=== PATIENT | male | born 1935 | race Asian ===

== ENCOUNTER 2017-06-15 01:14 | Emergency (ER) | payer OTHER ==
[2017-06-15 01:17] VITALS: BMI 23.1
[2017-06-15 01:38] LABS: EOS % 0.8 % (0-4.5); HEMATOCRIT 35.2 % (35.4-49); HEMOGLOBIN 11.5 GM/dL (11.7-16.9); LYMPH % 2.2 % (8-40); MCH 33.1 pg (25.7-33.7); MCHC 32.7 g/dl (32.0-35.9); MEAN CELL VOLUME 101.4 fl (80-96); MEAN PLT VOLUME 8.8 fl (7.5-11.1); PLATELET COUNT 247 K/MM3 (134-434); RBC 3.47 M/mm3 (4.00-5.60); RDW 15.8 % (11.9-15.9); WHITE BLOOD COUNT 10.8 K/mm3 (4.0-10.0)
--- NOTE | 2017-06-15 01:42 | PDOC ---
History of Present Illness - General Chief Complaint: Pain, Acute Stated Complaint: ABD PAIN Time Seen by Provider: 06/15/17 01:31 History Source: Patient, Significant Other - History of Present Illness Initial Comments: 06/15/17 02:19 82-year-old male with epigastric pain since this afternoon patient has a past medical history of liver CA currently on chemotherapy/embolization therapy at [place]. Past History - Past Medical History Allergies/Adverse Reactions: Allergies Allergy/AdvReac Type Severity Reaction Status Date / Time No Known Allergies Allergy Verified 06/15/17 01:21 Home Medications: Ambulatory Orders Aspirin 81 mg PO DAILY 06/15/17 Furosemide [Lasix] mg PO DAILY 06/15/17 Hydroxyurea [Hydrea -] 500 mg PO BID 06/15/17 Lisinopril [Prinivil] mg PO DAILY 06/15/17 Tamsulosin HCl [Flomax] 0.4 mg PO DAILY 06/15/17 Cancer: Yes (liver) COPD: No HTN: Yes Other medical history: enlarged prostate - Surgical History Abdominal Surgery: Yes (s/p perf during colonoscopy) - Suicide/Smoking/Psychosocial Hx Smoking History: Never smoked Have you smoked in the past 12 months: No Information on smoking cessation initiated: No Hx Alcohol Use: No Drug/Substance Use Hx: No Review of Systems - Review of Systems Able to Perform ROS?: Yes Is the patient limited Greenlandic proficient: No Constitutional: No: Symptoms Reported, See HPI, Chills, Diaphoresis, Fever, Loss of Appetite, Malaise, Night Sweats, Weakness, Weight Stable, Unintentional Wgt. Loss, Unexplained wgt Loss, Other HEENTM: No: Symptoms Reported, See HPI, Eye Pain, Blurred Vision, Tearing, Recent change in vision, Double Vision, Cataracts, Ear Pain, Ocular Prothesis, Ear Discharge, Nose Pain, Nose Congestion, Tinnitus, Nose Bleeding, Hearing Loss , Throat Pain, Throat Swelling, Mouth Pain, Dental Problems, Difficulty Swallowing, Mouth Swelling, Other Respiratory: No: Symptoms reported, See HPI, Cough, Orthopnea, Shortness of Breath, SOB with Exertion, SOB at Rest, Stridor, Wheezing, Productive cough, Hemoptysis, Other Cardiac (ROS): No: Symptoms Reported, See HPI, Chest Pain, Edema, Irregular Heart Rate, Lightheadedness, Palpitations, Syncope, Chest Tightness, Other ABD/GI: Yes: Abdominal cramping (epigastric pain). No: Symptoms Reported, See HPI, Abdominal Distended, Abd. Pain w/ defecation, Blood Streaked Bowels, Constipated, Diarrhea, Difficulty Swallowing, Nausea, Poor Appetite, Poor Fluid Intake, Rectal Bleeding, Vomiting, Indigestion, Tarry Stools, Other *Physical Exam - Vital Signs Last Vital Signs Temp Pulse Resp BP Pulse Ox 98.2 F 65 20 156/65 100 06/15/17 01:16 06/15/17 01:16 06/15/17 01:16 06/15/17 01:16 06/15/17 01:16 - Physical Exam General Appearance: Yes: Appropriately Dressed HEENT: negative: EOMI, [place], Normal ENT Inspection, Normal Voice, Symmetrical, TMs Normal, Pharynx Normal, Pale Conjunctivae, Photophobia, Scleral Icterus (R) , Scleral Icterus (L), Muffled/Hoarse voice, Pharyngeal Erythema, Tonsillar Exudate, Tonsillar Erythema, Nasal Congestion, Rhinorrhea, Sinus Tenderness, Orbits, Hearing Decreased, Hearing Grossly Normal, TM Bulging, TM Dull, TM Erythema, Lesions, Sellers, Excessive drooling, Thrush, Other Neck: negative: Tender, Trachea midline, Normal Thyroid, Rigid, Supple, Carotid bruit, Decreased range of motion, Stridor, Lymphadenopathy (R), Lymphadenopathy (L), Rigidity, Tender lateral, Tender midline, Thyromegaly, Other Respiratory/Chest: positive: Lungs Clear, Normal Breath Sounds Cardiovascular: positive: Regular Rhythm, Regular Rate Gastrointestinal/Abdominal: positive: Normal Bowel Sounds, Tender (epigastric pain), Distended, Hepatomegaly Extremity: positive: Normal Capillary Refill, Normal Inspection, Normal Range of Motion Integumentary: positive: Normal Color, Dry, Warm, Jaundice, Other (iceteric sclera) Neurologic: positive: Fully Oriented, Alert, Normal Mood/Affect ED Treatment Course - LABORATORY CBC & Chemistry Diagram: 06/15/17 01:30 06/15/17 01:30 Progress Note - Progress Note Progress Note: A; cholecystitis, Pancreatitis Liver CA Medical Decision Making - Medical Decision Making 06/15/17 03:44 Dr. Hirsch aware of this patient. recommends contacting Dr. GANNON's office in [place]. Patient to be evaluated by surgery here. 06/15/17 03:[address] Gannon at [facility]/ [place] . Dr. Mattson pending call back. 06/15/17 06:30 Multiple attempts to paging service for Dr. Gannon with no call back. pending evaluation By Dr. Hirsch 06/15/17 06:43 06/15/17 07:15 Patient signed out to Chantal MARTINEZ. 06/15/17 19:34 patient is being transferred to [place] for admission *DC/Admit/Observation/Transfer Diagnosis at time of Disposition: Epigastric abdominal pain Pancreatitis Qualifiers: Chronicity: acute Pancreatitis type: biliary Acute pancreatitis complication: unspecified Qualified Code(s): K85.10 - Biliary acute pancreatitis without necrosis or infection Cholecystitis with cholelithiasis Qualifiers: Cholelithiasis location: gallbladder Cholecystitis acuity: acute Biliary obstruction: without biliary obstruction Qualified Code(s): K80.00 - Calculus of gallbladder with acute cholecystitis without obstruction - Discharge Dispostion Disposition: TRANSFER ACUTE CARE/OTHER HOSP Condition at time of disposition: Fair - Referrals Referrals: ON STAFF,NOT [Primary Care Provider] - - Patient Instructions - Post Discharge Activity
[2017-06-15 01:51] LABS: INR 1.17 (0.82-1.09); PROTHROMBIN TIME (PATIENT) 13.2 SEC (9.98-11.88)
[2017-06-15 02:05] LABS: ALBUMIN 3.7 g/dl (3.4-5.0); ANION GAP 11 (8-16); BILIRUBIN,TOTAL 3.6 mg/dL (0.2-1.0); BLOOD UREA NITROGEN 25 mg/dL (7-18); CALCIUM 8.1 mg/dL (8.5-10.1); CHLORIDE 106 mmol/L (98-107); CO2 22 mmol/L (21-32); CREATININE 1.6 mg/dL (0.7-1.3); GLUCOSE,RANDOM 123 mg/dL (74-106); SGOT/AST 194 U/L (15-37); SGPT/ALT 217 U/L (12-78); SODIUM 139 mmol/L (136-145); TOT PROT 6.8 g/dl (6.4-8.2)
[2017-06-15 02:06] LABS: ALK PHOS 277 U/L (45-117)
[2017-06-15] MEDS ORDERED: morphine CARPU-JECT 4 MG/1 ML DISP.SYRIN IVPUSH ONE (02:26)
[2017-06-15] MEDS ORDERED: ONDANSETRON 4 MG/2 ML VIAL ONE (02:28)
[2017-06-15] MEDS ORDERED: ONDANSETRON 4 MG/2 ML VIAL IVPUSH ONE (02:28)
[2017-06-15] MEDS ORDERED: MORPHINE SULFATE 10 MG/1 ML *VIAL ONE (02:28)
[2017-06-15] MEDS ORDERED: SODIUM CHLORIDE 1,000 ML IV SCH (03:45)
[2017-06-15] MEDS ORDERED: PIPERACILLIN/TAZOB 3.375 GM/50 ML PRE-DOCKED IVPB ONE (03:45)
[2017-06-15] MEDS ORDERED: PIPERACILLIN/TAZOB 3.375 GM 3.375 GM/50 ML BAG IVPB ONE (03:59)
[2017-06-15] MEDS ORDERED: SODIUM CHLORIDE 1,000 ML IV STA (06:59)
[2017-06-15 07:23] LABS: URINE APPEARANCE CLEAR; URINE BILIRUBIN NEGATIVE (NEGATIVE); URINE BLOOD NEGATIVE (NEGATIVE); URINE COLOR AMBER; URINE GLUCOSE (UA) NEGATIVE (NEGATIVE); URINE KETONE NEGATIVE (NEGATIVE); URINE LEUK ESTERASE NEGATIVE (NEGATIVE); URINE NITRITE NEGATIVE (NEGATIVE); URINE PROTEIN NEGATIVE (NEGATIVE)
--- NOTE | 2017-06-15 07:49 | PDOC ---
*Physical Exam - Vital Signs Last Vital Signs Temp Pulse Resp BP Pulse Ox 99.4 F 62 14 122/47 96 06/15/17 07:06 06/15/17 07:06 06/15/17 06:35 06/15/17 07:06 06/15/17 07:06 - Physical Exam General Appearance: Yes: Appropriately Dressed. No: Apparent Distress HEENT: positive: Normal Voice Neck: positive: Supple Respiratory/Chest: positive: Lungs Clear, Normal Breath Sounds. negative: Respiratory Distress Cardiovascular: positive: Regular Rate, S1, S2 Gastrointestinal/Abdominal: positive: Normal Bowel Sounds, Tender, Soft. negative: Distended Integumentary: positive: Dry, Warm Neurologic: positive: Fully Oriented, Alert, Normal Mood/Affect ED Treatment Course - LABORATORY CBC & Chemistry Diagram: 06/15/17 01:30 06/15/17 01:30 - ADDITIONAL ORDERS Additional order review: Laboratory Results 06/15/17 06/15/17 06/15/17 05:30 01:30 01:30 PT with INR INR Sodium Potassium Chloride Carbon Dioxide Anion Gap BUN Creatinine Creat Clearance w eGFR Random Glucose Lactic Acid Calcium Total Bilirubin AST ALT Alkaline Phosphatase Ammonia Creatine Kinase 103 Troponin I 0.06 H Total Protein Albumin Lipase 644 H Urine Color Alisha Urine Appearance Clear Urine pH 5.0 Ur Specific [place] 1.018 Urine Protein Negative Urine Glucose (UA) Negative Urine Ketones Negative Urine Blood Negative Urine Nitrite Negative Urine Bilirubin Negative Urine Urobilinogen 2.0 Ur Leukocyte Esterase Negative 06/15/17 06/15/17 06/15/17 01:30 01:30 01:30 PT with INR INR Sodium 139 Potassium 4.0 Chloride 106 Carbon Dioxide 22 Anion Gap 11 BUN 25 H Creatinine 1.6 H Creat Clearance w eGFR 41.39 Random Glucose 123 H Lactic Acid 0.8 Calcium 8.1 L Total Bilirubin 3.6 H AST 194 H ALT 217 H Alkaline Phosphatase 277 H Ammonia 30.49 Creatine Kinase Troponin I Total Protein 6.8 Albumin 3.7 Lipase Urine Color Urine Appearance Urine pH Ur Specific [place] Urine Protein Urine Glucose (UA) Urine Ketones Urine Blood Urine Nitrite Urine Bilirubin Urine Urobilinogen Ur Leukocyte Esterase 06/15/17 01:30 PT with INR 13.20 H INR 1.17 H Sodium Potassium Chloride Carbon Dioxide Anion Gap BUN Creatinine Creat Clearance w eGFR Random Glucose Lactic Acid Calcium Total Bilirubin AST ALT Alkaline Phosphatase Ammonia Creatine Kinase Troponin I Total Protein Albumin Lipase Urine Color Urine Appearance Urine pH Ur Specific [place] Urine Protein Urine Glucose (UA) Urine Ketones Urine Blood Urine Nitrite Urine Bilirubin Urine Urobilinogen Ur Leukocyte Esterase 06/15/17 01:30 RBC 3.47 L MCV 101.4 H MCHC 32.7 RDW 15.8 MPV 8.8 Neutrophils % 91.0 H Lymphocytes % 2.2 L Monocytes % 6.0 Eosinophils % 0.8 Basophils % 0.0 - Medications Given in the ED: ED Medications Discontinued Medications Generic Name Dose Route Start Last Admin Trade Name Freq PRN Reason Stop Dose Admin Morphine Sulfate 4 mg 06/15/17 02:26 06/15/17 02:35 Morphine Injection - IVPUSH 06/15/17 02:27 4 mg ONCE ONE Administration Ondansetron HCl 4 mg 06/15/17 02:28 06/15/17 02:28 Zofran Injection IVPUSH 06/15/17 02:29 4 mg NOW ONE Administration Piperacillin Sod/Tazobactam Sod 3.375 gm 06/15/17 03:45 06/15/17 04:06 Zosyn 3.375gm Ivpb (Pre-Docked) IVPB 06/15/17 03:46 3.375 gm ONCE ONE Administration Protocol Medical Decision Making - Medical Decision Making 06/15/17 07:47 Signed out to me at 7 AM by DMITRIY Wheeler. Patient is a 82-year-old male with history of liver CA on chemotherapy/ embolization therapy, follows up with oncology at [place], here with epigastric pain. LFTs including bili elevated, lipase also elevated. No significant leukocytosis. As per DMITRIY Wheeler, patient had gallstones/sludge and wall thickness on US. Dr. Hirsch of surgery has since been consulted and recommends IV fluids and Zosyn. AnastacioDTati now at bedside. Plan is to transfer patient to [place] where he gets his care, Zaida to facilitate transfer 06/15/17 11:28 Dr Hirsch facilitated transfer to [facility]. Transfer center contacted me to let me know that Dr. Solano, a hospitalist at [place] is accepting patient and will consult surg onc once patient arrives to facility. Will sent ALS transport. Will call back for nurse to nurse report. Transfer form filled out and face sheet sent by Dr Hirsch. *DC/Admit/Observation/Transfer Diagnosis at time of Disposition: Epigastric abdominal pain Pancreatitis Qualifiers: Chronicity: acute Pancreatitis type: biliary Acute pancreatitis complication: unspecified Qualified Code(s): K85.10 - Biliary acute pancreatitis without necrosis or infection Cholecystitis with cholelithiasis Qualifiers: Cholelithiasis location: gallbladder Cholecystitis acuity: acute Biliary obstruction: without biliary obstruction Qualified Code(s): K80.00 - Calculus of gallbladder with acute cholecystitis without obstruction - Discharge Dispostion Disposition: TRANSFER ACUTE CARE/OTHER HOSP Condition at time of disposition: Fair - Referrals Referrals: ON STAFF,NOT [Primary Care Provider] - - Patient Instructions - Post Discharge Activity
--- NOTE | 2017-06-15 09:24 | CONSULT ---
Consult Consult Specialty:: General Surgery Referred by:: Abby Wheeler Reason for Consultation:: gallstones, pancreatitis, cholecystitis? - History of Present Illness Chief Complaint: epigastric pain History of Present Illness: 82yo M with HTN, BPH, CAD, h/o PR "a slight one" in 2001, liver CA diagnosed 2013 s/p chemoembolization x3 last 03/04, had MRI at [place] last week (all Tx has been at [place]), but cannot remember name of his liver surgeon. Oncologist was Dr. Allie Gannon, who is now at [facility]. Tuesday, he was in his usual state of health, then Tuesday he began having epigastric pain. It got worse over the last few days, and very bad after spicy noodles yesterday. He had no N/V, F/ C, or diarrhea. He has occasional constipation but had a soft, formed BM yesterday. Last po was an Ensure about 9pm last night. The pain is a better after morphine in the ER. Here, had a wbc 10.8, BUN/Cr 25/1.6, UA negative, LFTs elevated with bili 3.6 and lipase 664. US shows partially distended gallbladder (7.7cm) with thickened wall, stones and sludge, no pericholecystic fluid and no Urias's sign. CBD was 1cm on US with no intrahepatic biliary dilation. Few hyperechoic liver lesions present consistent with known neoplasm. Surgery is consulted because of findings consistent with possible gallstone pancreatitis and possible cholecystitis. ER overnight was unable to reach Dr. Gannon or his on-call covering doctor. Pt's states he is no longer seeing Dr. Gannon. - History Source History Provided By: Patient, Family Member () Limitations to Obtaining History: No Limitations - Past Medical History Cardio/Vascular: Yes: CAD, HTN, PR ("slight one" 2001) Gastrointestinal: Yes: Ascites, Cancer (liver CA dx 2012) Renal/: Yes: BPH - Past Surgical History Past Surgical History: Yes: Cataract Removal (bilateral), Colonoscopy Additional Surgical History: laparotomy for perforation during colonoscopy - has midline scar with retention suture scars from 2013 - Alcohol/Substance Use Hx Alcohol Use: No History of Substance Use: reports: None - Smoking History Smoking history: Never smoked Have you smoked in the past 12 months: No - Social History Usual Living Arrangement: With Spouse ADL: Independent Home Medications - Allergies Allergies/Adverse Reactions: Allergies Allergy/AdvReac Type Severity Reaction Status Date / Time No Known Allergies Allergy Verified 06/15/17 01:21 - Home Medications Home Medications: Ambulatory Orders Aspirin 81 mg PO DAILY 06/15/17 Furosemide [Lasix] mg PO DAILY 06/15/17 Hydroxyurea [Hydrea -] 500 mg PO BID 06/15/17 Lisinopril [Prinivil] mg PO DAILY 06/15/17 Tamsulosin HCl [Flomax] 0.4 mg PO DAILY 06/15/17 Home Medications (free text): took home meds yesterday Family Disease History - Family Disease History Family History: Denies (parents of "old age," siblings and children healthy per pt) Review of Systems - Review of Systems Constitutional: denies: Chills, Fever Eyes: reports: Other (wears glasses). denies: Recent Change in Vision HENT: reports: Hearing Loss (left ear hears better than right). denies: Difficult Swallowing, Throat Pain Neck: denies: Swollen Glands, Tenderness Cardiovascular: denies: Chest Pain, Palpitations Respiratory: reports: Orthopnea (uses two pillows at night), SOB (sometimes). denies: Cough Gastrointestinal: reports: Abdominal Pain (with hpi), Constipation (sometimes). denies: Diarrhea, Nausea, Vomiting Genitourinary: denies: Burning, Dysuria Musculoskeletal: denies: Back Pain, Joint Pain Integumentary: denies: Change in Color, Rash Neurological: denies: Dizziness, Headache Psychiatric: denies: Anxiety, Depression Physical Exam Vital Signs: Vital Signs Temperature 99.4 F 06/15/17 07:06 Pulse Rate 62 06/15/17 07:06 Respiratory Rate 14 06/15/17 06:35 Blood Pressure 122/47 06/15/17 07:06 O2 Sat by Pulse Oximetry (%) 96 06/15/17 07:06 Constitutional: Yes: Well Nourished, No Distress, Calm Eyes: Yes: Conjunctiva Clear, EOM Intact. No: Sclera Icterus (minimal if any) HENT: Yes: Atraumatic, Normocephalic Neck: Yes: Supple, Trachea Midline Cardiovascular: Yes: Regular Rate and Rhythm, Murmur Respiratory: Yes: Regular, CTA Bilaterally Gastrointestinal: Yes: Normal Bowel Sounds, Soft, Ascites, Distention, Hernia ( umbilical, reducible), Tenderness, Epigastrium (mild), Other (well-healed midline scar with retention suture scars). No: Tenderness, Rebound ...Rectal Exam: Yes: Deferred Renal/: No: CVA Tenderness - Left, CVA Tenderness - Right Musculoskeletal: No: Back Pain, Joint Stiffness Extremities: No: Cool, Cyanosis Edema: No Peripheral Pulses WNL: Yes Integumentary: No: Jaundice, Rash Neurological: Yes: Alert, Oriented Psychiatric: Yes: Alert, Oriented Labs: CBC, BMP 06/15/17 01:30 06/15/17 01:30 CMP Sodium 139 mmol/L (136-145) 06/15/17 01:30 Potassium 4.0 mmol/L (3.5-5.1) 06/15/17 01:30 Chloride 106 mmol/L (98-107) 06/15/17 01:30 Carbon Dioxide 22 mmol/L (21-32) 06/15/17 01:30 Anion Gap 11 (8-16) 06/15/17 01:30 BUN 25 mg/dL (7-18) H 06/15/17 01:30 Creatinine 1.6 mg/dL (0.7-1.3) H 06/15/17 01:30 Creat Clearance w eGFR 41.39 (>60) 06/15/17 01:30 Random Glucose 123 mg/dL (74-106) H 06/15/17 01:30 Lactic Acid 0.8 mmol/L (0.0-2.0) 06/15/17 01:30 Calcium 8.1 mg/dL (8.5-10.1) L 06/15/17 01:30 Total Bilirubin 3.6 mg/dL (0.2-1.0) H 06/15/17 01:30 AST 194 U/L (15-37) H 06/15/17 01:30 ALT 217 U/L (12-78) H 06/15/17 01:30 Alkaline Phosphatase 277 U/L (45-117) H 06/15/17 01:30 Ammonia 30.49 umol/L (11-32) 06/15/17 01:30 Creatine Kinase 103 IU/L (39-308) 06/15/17 01:30 Troponin I 0.06 ng/ml (0.00-0.05) H 06/15/17 01:30 Total Protein 6.8 g/dl (6.4-8.2) 06/15/17 01:30 Albumin 3.7 g/dl (3.4-5.0) 06/15/17 01:30 Lipase 644 U/L (73-393) H 06/15/17 01:30 INR, PTT INR 1.17 (0.82-1.09) H 06/15/17 01:30 Urine Test Results Urine Color Alisha 06/15/17 05:30 Urine Appearance Clear 06/15/17 05:30 Urine pH 5.0 (5.0-8.0) 06/15/17 05:30 Ur Specific [place] 1.018 (1.001-1.035) 06/15/17 05:30 Urine Protein Negative (NEGATIVE) 06/15/17 05:30 Urine Glucose (UA) Negative (NEGATIVE) 06/15/17 05:30 Urine Ketones Negative (NEGATIVE) 06/15/17 05:30 Urine Blood Negative (NEGATIVE) 06/15/17 05:30 Urine Nitrite Negative (NEGATIVE) 06/15/17 05:30 Urine Bilirubin Negative (NEGATIVE) 06/15/17 05:30 Ur Leukocyte Esterase Negative (NEGATIVE) 06/15/17 05:30 Imaging - Results Ultrasound: Report Reviewed (also with liver lesions present), Image Reviewed ( images seen - stones and sludge present, gallbladder partially distended to 7.7cm, wall thickened, cbd 1cm) Problem List - Problems (1) Biliary acute pancreatitis without necrosis or infection Assessment/Plan: Patient may have gallstone pancreatitis, but without prior labs for comparison, it is difficult to be certain given his underlying liver cancer. If he does have gallstone pancreatitis, or needs surgical intervention for his gallbladder, he should be transferred to [place], where his hepatobiliary specialist and oncologist are located. His liver cancer and ascites pose additional surgical risks, which would be best handled at a tertiary center with his own doctors ([place]). Multiple calls placed to [facility] trying to reach the Cancer Center and find the name of Mr. Vásquez' surgeon. Ultimately, spoke with Sana at [facility] Transfer [facility], who is reaching out to oncology personal banker. His thinks the surgeon might be Dr. Nicolas. ER started IV fluid resuscitation and maintenance, and he is NPO. Zosyn 3.375g was given ~4am to cover for possible cholecystitis as well. WBC elevation could be secondary to cancer, dehydration or inflammation as well as infection. Pain control prn Awaiting callback from transfer center to speak with medical or surgical provider at [place] to facilitate transfer. Time spent on exam, discussion with patient/ and other institutions is 70 minutes. 10:34am: Spoke again with Sana in transfer center, and JUAN Siddiqi at [place], who confirms that patient's LFTs were normal in early May, as well as wbc. He had MRI just Tuesday after telling them that he had pain, which also shows stones and sludge, normal pancreas and two new liver lesions. Dr. Nicolas is the interventional radiologist who did the embolizations. She will speak with her attending. Dr. Raman Solano, hospitalist, has also been contacted. I spoke with him through the transfer center, and he agrees the patient should be transferred to [place]. At this time, transfer is pending determination of accepting service, medicine or surgery. Dr. Santillan from the ER is aware and will continue to facilitate the process with JUAN Ortiz (ER). Code(s): K85.10 - BILIARY ACUTE PANCREATITIS WITHOUT NECROSIS OR INFECTION (2) Liver cancer Code(s): C22.9 - MALIG NEOPLASM OF LIVER, NOT SPECIFIED PRIMARY OR SEC Qualifiers: Liver malignancy type: hepatocellular carcinoma Qualified Code(s): C22.0 - Liver cell carcinoma (3) Epigastric abdominal pain Code(s): R10.13 - EPIGASTRIC PAIN (4) Dehydration Code(s): E86.0 - DEHYDRATION (5) Hypertension Code(s): I10 - ESSENTIAL (PRIMARY) HYPERTENSION Qualifiers: Hypertension type: essential hypertension Qualified Code(s): I10 - Essential (primary) hypertension (6) BPH (benign prostatic hyperplasia) Code(s): N40.0 - BENIGN PROSTATIC HYPERPLASIA WITHOUT LOWER URINRY TRACT SYMP Qualifiers: Lower urinary tract symptom presence: unspecified whether lower urinary tract symptoms present Qualified Code(s): N40.0 - Benign prostatic hyperplasia without lower urinary tract symptoms
[2017-06-15 09:59] VITALS: TEMP 98.7
--- NOTE | 2017-06-15 10:34 | EKG ---
Test Reason : Blood Pressure : / mmHG Vent. Rate : 056 BPM Atrial Rate : 056 BPM P-R Int : 266 ms QRS Dur : 094 ms QT Int : 474 ms P-R-T Axes : 016 -31 094 degrees QTc Int : 457 ms SINUS BRADYCARDIA WITH 1ST DEGREE A-V BLOCK LEFT AXIS DEVIATION LEFT VENTRICULAR HYPERTROPHY WITH REPOLARIZATION ABNORMALITY SEPTAL INFARCT , AGE UNDETERMINED ABNORMAL ECG NO PREVIOUS ECGS AVAILABLE Confirmed by MIKE GARIBAY, ASHLEY ([id number]) on 06/15/2017 10:33:49 AM Referred By: Confirmed By:ASHLEY MCKEON MD
[2017-06-15] MEDS ORDERED: LORazepam 1 MG TABLET PO ONE (17:32)
[2017-06-15] MEDS ORDERED: LORazepam 0.5 MG TABLET ONE (17:42)
[2017-06-15 19:52] VITALS: BP 128/62; PULSE 80
== END 2017-06-15 19:50 | disposition short-term general hospital (02) ==
LOC: JER 01:14
PROC: 3E033GC Introduction of Other Therapeutic Substance into Peripheral Vein, Percutaneous Approach (ICD-10-PCS; principal; 2017-06-15)
PROC: 3E03329 Introduction of Other Anti-infective into Peripheral Vein, Percutaneous Approach (ICD-10-PCS; 2017-06-15)
PROC: 3E033NZ Introduction of Analgesics, Hypnotics, Sedatives into Peripheral Vein, Percutaneous Approach (ICD-10-PCS; 2017-06-15)
PROC: 3E0337Z Introduction of Electrolytic and Water Balance Substance into Peripheral Vein, Percutaneous Approach (ICD-10-PCS; 2017-06-15)
DX: R10.13 Epigastric pain (principal); K85.10 Biliary acute pancreatitis without necrosis or infection; K80.00 Calculus of gallbladder with acute cholecystitis without obstruction; Z85.05 Personal history of malignant neoplasm of liver; I10 Essential (primary) hypertension
CPT/HCPCS: 36415; 76705-TC; 80053; 81003; 82140; 82550; 83605; 83690; 84484; 85025; 85610; 93005; 93010; 96361; 96365; 96375; 99285-25

== ENCOUNTER 2018-02-14 19:44 | Inpatient (IN) | payer OTHER ==
[2018-02-14 19:59] VITALS: BMI 22.3
--- NOTE | 2018-02-14 19:59 | PDOC ---
Rapid Medical Evaluation Time Seen by Provider: 02/14/18 19:56 Medical Evaluation: Allergies Allergy/AdvReac Type Severity Reaction Status Date / Time No Known Allergies Allergy Verified 11/28/17 08:33 02/14/18 19:56 Pt presents to the ED for a low blood count as told by his doctor. Told he has a low hemoglobin. Pt admits to SOB and weakness Exam: Pale appearing. NAD Orders: Labs, IV, EKG Pt to proceed to ED for further evaluation
--- NOTE | 2018-02-14 20:46 | PDOC ---
History of Present Illness - General Chief Complaint: Revisit, Lab Variance Stated Complaint: LOW HEMOGLOBIN, PCP SENT Time Seen by Provider: 02/14/18 19:56 History Source: Patient - History of Present Illness Initial Comments: 02/14/18 20:51 The patient is an 82 year old male accompanied with his , with a past medical history of liver cancer (last chemo embolization treatment 12/2017), HTN , HLD, BPH, and hernia sent by [place] oncologist for low hemoglobin. as per patient has been feeling weak, nausea and headache for 1 day. denies chest pain, recent falls, abdominal pain, nausea, vomiting, bleeding, retacl bleeding 02/14/18 20:55 02/14/18 22:58 Past History - Past Medical History Allergies/Adverse Reactions: Allergies Allergy/AdvReac Type Severity Reaction Status Date / Time No Known Allergies Allergy Verified 02/14/18 19:57 Home Medications: Ambulatory Orders Furosemide [Lasix] 20 mg PO DAILY 06/15/17 Tamsulosin HCl [Flomax -] 0.4 mg PO DAILY 06/15/17 Entecavir 0.5 mg PO DAILY 11/28/17 Simvastatin 20 mg PO DAILY 11/28/17 Pantoprazole Sodium [Protonix -] 40 mg PO DAILY 30 Days #30 tablet.ec MDD 1 07/03 levoFLOXacin [Levaquin -] 500 mg PO DAILY 3 Days #3 tablet 02/18/18 Anemia: Yes Cancer: Yes (liver) Cardiac Disorders: Yes (SOB) CVA: Yes (2007) COPD: No GI Disorders: Yes (Reflux) HTN: Yes Hypercholesterolemia: Yes Liver Disease: Yes - Surgical History Abdominal Surgery: Yes (s/p perf during colonoscopy) - Immunization History Immunization Up to Date: Yes - Suicide/Smoking/Psychosocial Hx Smoking History: Former smoker Have you smoked in the past 12 months: No If you are a former smoker, when did you quit?: many years ago Information on smoking cessation initiated: No Hx Alcohol Use: No Drug/Substance Use Hx: No Substance Use Type: None Hx Substance Use Treatment: No *Physical Exam - Vital Signs Last Vital Signs Temp Pulse Resp BP Pulse Ox 98.6 F 71 18 137/39 L 98 02/14/18 19:57 02/14/18 19:57 02/14/18 19:57 02/14/18 19:57 02/14/18 19:57 - Physical Exam General Appearance: Yes: Appropriately Dressed Respiratory/Chest: positive: Lungs Clear, Normal Breath Sounds Cardiovascular: positive: Regular Rhythm, Regular Rate Gastrointestinal/Abdominal: positive: Normal Bowel Sounds, Soft, Other (+ reducible umbilical hernia). negative: Tender Extremity: positive: Normal Capillary Refill, Normal Inspection, Normal Range of Motion Integumentary: positive: Normal Color, Dry, Warm Neurologic: positive: Fully Oriented, Normal Mood/Affect ED Treatment Course - LABORATORY CBC & Chemistry Diagram: 02/18/18 10:15 02/18/18 10:15 Medical Decision Making - Medical Decision Making A: Liver Ca with symptomatic anemia P: labs IVF PRBC ct head patient signed out to Dr. Saini *DC/Admit/Observation/Transfer Diagnosis at time of Disposition: Symptomatic anemia Liver cancer Qualifiers: Liver malignancy type: unspecified liver malignancy Qualified Code(s): C22.9 - Malignant neoplasm of liver, not specified as primary or secondary - Discharge Dispostion Disposition: HOME Condition at time of disposition: Improved Decision to Admit order: Yes - Prescriptions - Referrals - Patient Instructions - Post Discharge Activity
[2018-02-14] MEDS ORDERED: SODIUM CHLORIDE 250 ML IV STA (21:20)
[2018-02-14 21:38] LABS: BASO % 1.3 % (0-2.0); EOS % 1.7 % (0-4.5); HEMATOCRIT 21.7 % (35.4-49); LYMPH % 4.2 % (8-40); MCHC 28.2 g/dl (32.0-35.9); MEAN CELL VOLUME 70.7 fl (80-96); MEAN PLT VOLUME 8.5 fl (7.5-11.1); MONO % 7.1 % (3.8-10.2); NEUT % 85.7 % (42.8-82.8); PLATELET COUNT 416 K/MM3 (134-434); RBC 3.06 M/mm3 (4.00-5.60); RDW 21.5 % (11.9-15.9); WHITE BLOOD COUNT 9.7 K/mm3 (4.0-10.0)
[2018-02-14 21:41] LABS: HEMOGLOBIN 6.1 GM/dL (11.7-16.9)
[2018-02-14 21:56] LABS: URINE APPEARANCE CLEAR; URINE BILIRUBIN NEGATIVE (<2.0 mg/dL); URINE COLOR LTYELLOW; URINE GLUCOSE (UA) NEGATIVE (NEGATIVE); URINE KETONE NEGATIVE (NEGATIVE); URINE LEUK ESTERASE NEGATIVE (NEGATIVE); URINE NITRITE NEGATIVE (NEGATIVE); URINE PROTEIN NEGATIVE (NEGATIVE); URINE UROBILINOGEN NEGATIVE mg/dL (0.2-1.0)
[2018-02-14 22:19] LABS: ALBUMIN 3.7 g/dl (3.4-5.0); ALK PHOS 211 U/L (45-117); ANION GAP 10 MMOL/L (8-16); BILIRUBIN,TOTAL 0.8 mg/dL (0.2-1); BLOOD UREA NITROGEN 27 mg/dL (7-18); CALCIUM 8.2 mg/dL (8.5-10.1); CHLORIDE 108 mmol/L (98-107); CO2 23 mmol/L (21-32); CREATININE 1.5 mg/dL (0.55-1.3); GLUCOSE,RANDOM 100 mg/dL (74-106); SGOT/AST 39 U/L (15-37); SGPT/ALT 30 U/L (13-61); SODIUM 140 mmol/L (136-145); TOT PROT 7.8 g/dl (6.4-8.2)
[2018-02-14 22:22] LABS: INR 1.18 (0.83-1.09)
[2018-02-14 22:37] LABS: ANISOCYTOSIS 2+; OVALOCYTE FEW
--- NOTE | 2018-02-15 03:21 | PN ---
Teaching Attending Note Name of Resident: Ashleigh Reeves ATTENDING PHYSICIAN STATEMENT I saw and evaluated the patient. I reviewed the resident's note and discussed the case with the resident. I agree with the resident's findings and plan as documented. SUBJECTIVE: Patient is an 82 y/o HM with a PMH significant for Liver CA (diagnosed 2012, on chemoembolization tx at [facility] where he follows for all his needs), chronic anemia requiring transfusions at our facility in the past for symptomatic anemia (last in November, no prior FOBTs or Iron Studies at our facility), CKD- III (baseline 1.4-1.6 here), BPH, Gallstones, Cirrhosis with ascites. He presents to the ER with his after being directed to as his outpatinet oncology labs revealed an anemia that was in the 5 range when they checked and a 6.1 Hb at our facility. All of his prior records are in the process of being obtained. He had nonspecific sx including headache and weakness which he agrees are the same ones he had upon presenting last time. ER did a CT of his head which was negative. Anemia workup to be done, 2 units to be given (h/o CAD so xf goal 8), and will admit to medicine for transfusion and workup of his anemia. 10 sys ROS done and negative aside from HPI PMH and PSH are per chart; further details regarding procedural history, etc. are in the process of being obtained from [facility] asked and noncontributory Social lives with , denies drug or tobacco abuse. Occasionally drinks. OBJECTIVE: VSS, labs and imaging reviewed NAD AAOx3 resting in bed Gait wnl, speech fluid, no CN deficits, sensorium intact Judgement and insight average, denies SI, affect normal, appropriate behavior, normal mood RRR s1/2 no mgr Lungs CTAB with sym exp NT, mildly distended but this is chronic, likely ascites, +BS, reducible ventral hernia Trachea midline, no JVD Hb 6.1 on CBC; Cr at baseline; Alk Phos elevated to where it was earlier this year ASSESSMENT AND PLAN: Mr. Vásquez is an 82 y/o HM presenting with Anemia being found on outpatient labs ; he feels the same way he did in the past when he required transfusion. Hb 5- range as OP but 6.1 here. His goal is 8 given his CAD. We will transfuse him and monitor him on the medicine service. 1) Symptomatic Microcytic Anemia -Hb 6.1; no prior iron studies. Has multiple reasons to have anemia including myelosuppression, liver CA, etc. No iron studies, etc. on file here. Will obtain records from [facility] to elucidate his baseline Hb, etc. -Transfuse to goal of 8; monitor for fluid overload -Check iron studies, fobt, b12/folate, reticulocytes. If +FOBT would be prudent to consult GI and hold ASA. Need to compare heme abnormalities to his baseline -Should note he was macrocytic this winter, fell to normocytic, and is now microcytic 2) Liver Cancer -Gets chemoembolization at [facility]; obtain all old records -Contributing to anemia likely 3) Elevated Alk Phos -Chronically elevated; has been in 200s before but that was in May when he was transferred to [facility] and was accompanied by jump in AST/ALT which were starkly elevated at that time. He is not having any new tenderness, etc. -Trend, obtain old records. If this represents something significant off his baseline compared to review would consult GI. Had MRCP done in May at their facility per old surgical consultation. 4) Cirrhosis with Ascites (MELD=11) -Known diagnosis; obtain prior workup and information -Monitor fluid status, labs. No new meds as of now 5) Elevated troponin in patient with history of CAD -Patient has a history of CAD with remote IN documented; no recent events to our knowledge or in his chart here. Obtaining old records. Trend troponin, monitor on telemetry. He had nonspecific symptoms. Consulting cardiology and obtaining old records. No recent echos, stress tests, cath reports here but will check with [facility]. -Could be demand from #1 combined with renal retention due to underlying CKD, etc. Monitor for CP. 6) CKD-III -Around his baseline here, but we will cross check with old records. -Monitor BMP, Urine output 7) H/O Gallstones -Known history; no GB pain today. We will plan to monitor for now. 8) BPH -No acute issues; OP followup 9) Ventral Hernia -Likely postop; non-incarcerated and easily reduces Full Code
--- NOTE | 2018-02-15 03:26 | HP ---
CHIEF COMPLAINT: weakness Oncologist: Dr. Giles Ochoa, [facility] HISTORY OF PRESENT ILLNESS: Patient is an 82 year old male with history of liver cancer (unknown type, or stage- attempting to obtain records from [facility]) on chemo-embolization (fourth- fifth round as per patient's ), presents after being informed by his oncologist that his hemoglobin is low (reported 5.5), to come to nearest ED. Patient endorses feeling weakness for past day, with associated headache, and nausea. Denies any recent bleeding. He was seen in 11/2017 for similar symptoms and had Hb 6.7 at that time requiring PRBC transfusion. States that his symptoms of weakness, nausea, and headache are similar to the symptoms experienced at prior admission. Denies falls, loss of consciousness, fevers, chills, chest pain, palpitations, vomiting, diarrhea, hematemesis, constipation , hematochezia, hematuria, dysuria. ER course was notable for: (1) Hb 6.1 (2) 2 units PRBC transfusion (3) Fecal occult blood positive Recent Travel: denies PAST MEDICAL HISTORY: Liver cancer, MA (2001), CAD, HTN, HLD, BPH PAST SURGICAL HISTORY: laparatomy due to perforation with colonoscopy (2012) Social History: Smoking: smoked 1-2 cigarettes a day for 20 years. Quit 10 years ago Alcohol: drinks 1-2 beers a day Drugs: denies illicit drug use Family History: Father: at 94 years old due to "old age" Mother: at 86 years old "old age" patient unable to describe family history. denies family history of any cancer Allergies No Known Allergies Allergy (Verified 02/14/18 19:57) HOME MEDICATIONS: Home Medications Medication Instructions Recorded Aspirin 81 mg PO DAILY 06/15/17 Furosemide [Lasix] 20 mg PO DAILY 06/15/17 Tamsulosin HCl [Flomax -] 0.4 mg PO DAILY 06/15/17 Entecavir 0.5 mg PO DAILY 11/28/17 Simvastatin 20 mg PO DAILY 11/28/17 REVIEW OF SYSTEMS CONSTITUTIONAL: Admits: generalized weakness. Absent: fever, chills, diaphoresis, malaise, loss of appetite, weight change HEENT: Absent: rhinorrhea, nasal congestion, throat pain, throat swelling, difficulty swallowing, mouth swelling, ear pain, eye pain, visual changes CARDIOVASCULAR: Absent: chest pain, syncope, palpitations, irregular heart rate, lightheadedness , peripheral edema RESPIRATORY: Absent: cough, shortness of breath, dyspnea with exertion, orthopnea, wheezing, stridor, hemoptysis GASTROINTESTINAL: Admits: nausea. Absent: abdominal pain, abdominal distension, vomiting, diarrhea , constipation, melena, hematochezia GENITOURINARY: Absent: dysuria, frequency, urgency, hesitancy, hematuria, flank pain, genital pain MUSCULOSKELETAL: Absent: myalgia, arthralgia, joint swelling, back pain, neck pain SKIN: Absent: rash, itching, pallor HEMATOLOGIC/IMMUNOLOGIC: Absent: easy bleeding, easy bruising, lymphadenopathy, frequent infections ENDOCRINE: Absent: unexplained weight gain, unexplained weight loss, heat intolerance, cold intolerance NEUROLOGIC: Admits: headache. Absent: focal weakness or paresthesias, dizziness, unsteady gait, seizure, mental status changes, bladder or bowel incontinence PSYCHIATRIC: Absent: anxiety, depression, suicidal or homicidal ideation, hallucinations. PHYSICAL EXAMINATION Vital Signs - 24 hr 02/14/18 02/14/18 02/15/18 19:57 22:55 00:15 Temperature 98.6 F 98.5 F 98.4 F Pulse Rate 71 Pulse Rate [ 63 59 L Right Apical] Respiratory 18 18 18 Rate Blood Pressure 137/39 L Blood Pressure 140/64 131/56 L [Right Arm] O2 Sat by Pulse 98 100 96 Oximetry (%) 02/15/18 02/15/18 00:35 01:27 Temperature 98.6 F 98.6 F Pulse Rate Pulse Rate [ 62 61 Right Apical] Respiratory 18 18 Rate Blood Pressure Blood Pressure 117/56 L 128/53 L [Right Arm] O2 Sat by Pulse 98 97 Oximetry (%) GENERAL: Awake, alert, and fully oriented, in no acute distress. HEAD: Normal with no signs of trauma. EYES: Pupils equal, round and reactive to light, extraocular movements intact without nystagmus b/l. Scleral pallor noted, anicteric. EARS, NOSE, THROAT: Ears normal, nares patent, oropharynx clear without exudates. Moist mucous membranes. NECK: Normal range of motion, supple without lymphadenopathy, or thyromegaly. LUNGS: Breath sounds equal, clear to auscultation bilaterally. No wheezes, and no crackles. No accessory muscle use. HEART: Regular rate and rhythm, normal S1 and S2 without murmur, rub or gallop. ABDOMEN: Soft, distended, nontender to light and deep palpation X4 quadrants. Tympanic to percussion X4 quadrants. Normoactive bowel sounds X4 quadrants. Hepatomegaly palpated 3cm below costal margin. No guarding, no rebound tenderness. Ventral hernia 2cm noted, soft, non-incarcerated, easily reducible without pain. RECTAL: Good anal sphincter tone. No external or internal hemorrhoids noted. No stool within rectal vault. Light brown streaks of stool noted upon gloved finger. Sample sent for occult blood to lab. Prostate enlarged. MUSCULOSKELETAL: Normal range of motion at all joints. No bony deformities or tenderness. UPPER EXTREMITIES: 2+ radial pulses b/l, warm, well-perfused. LOWER EXTREMITIES: 2+ dorsalis pedis pulses b/l warm, well-perfused. No calf tenderness. Trace peripheral edema b/l. NEUROLOGICAL: Cranial nerves II-XII intact. Normal speech. Normal gait. No gross focal deficits. Strenth 5/5 b/l upper and lower extremities. PSYCHIATRIC: Cooperative. Good eye contact. Appropriate mood and affect. SKIN: Warm, dry. Midline vertical surgical scar noted over lower abdomen. Laboratory Results - last 24 hr 02/14/18 02/14/18 02/14/18 20:45 20:45 20:45 WBC 9.7 RBC 3.06 L Hgb 6.1 L* Hct 21.7 L MCV 70.7 L MCH 20.0 L D MCHC 28.2 L RDW 21.5 H Plt Count 416 D MPV 8.5 Absolute Neuts (auto) 8.3 H Neutrophils % 85.7 H Lymphocytes % 4.2 L D Monocytes % 7.1 Eosinophils % 1.7 Basophils % 1.3 Nucleated RBC % 0 Hypochromia 2+ Poikilocytosis 1+ Anisocytosis 2+ Ovalocytes Few Stomatocytes Few PT with INR 14.00 H INR 1.18 H Sodium Cancelled Potassium Cancelled Chloride Cancelled Carbon Dioxide Cancelled Anion Gap Cancelled BUN Cancelled Creatinine Cancelled Creat Clearance w eGFR Cancelled Random Glucose Cancelled Calcium Cancelled Total Bilirubin Cancelled AST Cancelled ALT Cancelled Alkaline Phosphatase Cancelled Troponin I Total Protein Cancelled Albumin Cancelled Urine Color Urine Appearance Urine pH Ur Specific [place] Urine Protein Urine Glucose (UA) Urine Ketones Urine Blood Urine Nitrite Urine Bilirubin Urine Urobilinogen Ur Leukocyte Esterase Stool Occult Blood Blood Type Antibody Screen Crossmatch 02/14/18 02/14/18 02/14/18 20:45 20:45 20:55 WBC RBC Hgb Hct MCV MCH MCHC RDW Plt Count MPV Absolute Neuts (auto) Neutrophils % Lymphocytes % Monocytes % Eosinophils % Basophils % Nucleated RBC % Hypochromia Poikilocytosis Anisocytosis Ovalocytes Stomatocytes PT with INR INR Sodium 140 Potassium 4.0 Chloride 108 H Carbon Dioxide 23 Anion Gap 10 BUN 27 H Creatinine 1.5 H Creat Clearance w eGFR 44.59 Random Glucose 100 Calcium 8.2 L Total Bilirubin 0.8 AST 39 H ALT 30 Alkaline Phosphatase 211 H Troponin I 0.08 H Total Protein 7.8 Albumin 3.7 Urine Color Ltyellow Urine Appearance Clear Urine pH 5.0 Ur Specific [place] 1.011 Urine Protein Negative Urine Glucose (UA) Negative Urine Ketones Negative Urine Blood Negative Urine Nitrite Negative Urine Bilirubin Negative Urine Urobilinogen Negative Ur Leukocyte Esterase Negative Stool Occult Blood Blood Type AB POSITIVE Antibody Screen Negative Crossmatch See Detail 02/15/18 02/15/18 00:30 01:38 WBC RBC Hgb Hct MCV MCH MCHC RDW Plt Count MPV Absolute Neuts (auto) Neutrophils % Lymphocytes % Monocytes % Eosinophils % Basophils % Nucleated RBC % Hypochromia Poikilocytosis Anisocytosis Ovalocytes Stomatocytes PT with INR INR Sodium Potassium Chloride Carbon Dioxide Anion Gap BUN Creatinine Creat Clearance w eGFR Random Glucose Calcium Total Bilirubin AST ALT Alkaline Phosphatase Troponin I 0.08 H Total Protein Albumin Urine Color Urine Appearance Urine pH Ur Specific [place] Urine Protein Urine Glucose (UA) Urine Ketones Urine Blood Urine Nitrite Urine Bilirubin Urine Urobilinogen Ur Leukocyte Esterase Stool Occult Blood Positive Blood Type Antibody Screen Crossmatch ASSESSMENT/PLAN: Patient is an 82 year old male with history of liver cancer on chemo- embolization therapy, presents after being informed by his oncologist to go to ED for low hemoglobin. Microcytic anemia -Likely secondary to chemo-emboliztion therapy. Patient denies any recent bleeding. -Transfusing 2 units PRBCs. Goal Hb 8.0 given cardiac history. -Follow CBC 1 hour after transfusion -F/U Iron studies, reticulocyte count, Folate, B12 -Fecal occult positive, however no nory blood noted upon rectal exam. -F/U GI consult (Dr. Alvarado) Troponinema -Likely secondary to demand ischemia, secondary to hypovolemia. Patient has history of MA. -EKG shows sinus bradycardia at 58 bpm, first degree heart block -Trend troponins. -Cardiac monitoring -F/U cardiology consult (Dr. Stout) Liver cancer -Patient is followed at [facility], receiving chemo-embolization therapy. -Will attempt to obtain records from [facility] regarding cancer history -Patient will follow up as outpatient with oncologist at [facility] FEN -2 units PRBCs -Follow CMP -Sodium controlled diet Prophylaxis -SCDs, TEDs b/l lower extremities Disposition -Telemetry observation Visit type - Emergency Visit Emergency Visit: Yes ED Registration Date: 02/14/18 Care time: The patient presented to the Emergency Department on the above date and was hospitalized for further evaluation of their emergent condition. - New Patient This patient is new to me today: Yes Date on this admission: 02/15/18 - Critical Care Critical Care patient: No
[2018-02-15 06:44] LABS: HEMATOCRIT 21.2 % (35.4-49); MCH 21.7 pg (25.7-33.7); MCHC 29.6 g/dl (32.0-35.9); MEAN CELL VOLUME 73.1 fl (80-96); MEAN PLT VOLUME 8.5 fl (7.5-11.1); PLATELET COUNT 331 K/MM3 (134-434); RDW 21.8 % (11.9-15.9)
[2018-02-15 06:54] LABS: HEMOGLOBIN 6.3 GM/dL (11.7-16.9)
[2018-02-15 07:22] LABS: ALBUMIN 3.3 g/dl (3.4-5.0); ALK PHOS 179 U/L (45-117); ANION GAP 9 MMOL/L (8-16); BILIRUBIN,TOTAL 1.5 mg/dL (0.2-1); BLOOD UREA NITROGEN 22 mg/dL (7-18); CALCIUM 7.9 mg/dL (8.5-10.1); CHLORIDE 110 mmol/L (98-107); CO2 22 mmol/L (21-32); CREATININE 1.3 mg/dL (0.55-1.3); GLUCOSE,RANDOM 84 mg/dL (74-106); MAGNESIUM 2.5 mg/dL (1.8-2.4); PHOSPHOROUS 3.1 mg/dL (2.5-4.9); POTASSIUM 3.6 mmol/L (3.5-5.1); SGOT/AST 31 U/L (15-37); SGPT/ALT 27 U/L (13-61); SODIUM 140 mmol/L (136-145); TOT PROT 6.8 g/dl (6.4-8.2)
[2018-02-15] MEDS ORDERED: PT OWN MED DRAWER 7, Y5N ONE (09:16)
[2018-02-15] MEDS: TAMSULOSIN HCL 0.4 MG CAP PO SCH (09:21)
--- NOTE | 2018-02-15 10:15 | CON.CARD ---
Consult Consult Specialty:: Cardiology - History of Present Illness History of Present Illness: The patient is an 82 year old male accompanied with his , with a past medical history of liver cancer (last chemo embolization treatment 12/2017), HTN , HLD, BPH, and hernia sent by [place] oncologist for low hemoglobin. as per patient has been feeling weak, nausea and headache for 1 day. denies chest pain, recent falls, abdominal pain, nausea, vomiting, bleeding, retacl bleeding 02/14/18 20:55 - History Source History Provided By: Patient, Medical Record - Past Medical History Cardio/Vascular: Yes: CAD, HTN, CT ("slight one" 2001) Gastrointestinal: Yes: Ascites, Cancer (liver CA dx 2012) Renal/: Yes: BPH - Past Surgical History Past Surgical History: Yes: Cataract Removal (bilateral), Colonoscopy - Alcohol/Substance Use Hx Alcohol Use: Yes (occassionally) History of Substance Use: reports: None - Smoking History Smoking history: Former smoker Have you smoked in the past 12 months: No If you are a former smoker, when did you quit?: 11 years ago - Social History Usual Living Arrangement: With Spouse ADL: Independent Home Medications - Allergies Allergies/Adverse Reactions: Allergies Allergy/AdvReac Type Severity Reaction Status Date / Time No Known Allergies Allergy Verified 02/14/18 19:57 - Home Medications Home Medications: Ambulatory Orders Aspirin 81 mg PO DAILY 06/15/17 Furosemide [Lasix] 20 mg PO DAILY 06/15/17 Tamsulosin HCl [Flomax -] 0.4 mg PO DAILY 06/15/17 Entecavir 0.5 mg PO DAILY 11/28/17 Simvastatin 20 mg PO DAILY 11/28/17 Review of Systems - Review of Systems Constitutional: reports: Weakness Eyes: reports: No Symptoms HENT: reports: No Symptoms Neck: reports: No Symptoms Cardiovascular: reports: No Symptoms Gastrointestinal: reports: No Symptoms Genitourinary: reports: No Symptoms Breasts: reports: No Symptoms Reported Musculoskeletal: reports: No Symptoms Integumentary: reports: No Symptoms Neurological: reports: No Symptoms Endocrine: reports: No Symptoms Hematology/Lymphatic: reports: No Symptoms Psychiatric: reports: No Symptoms Vital Signs: Vital Signs Temperature 97.2 F L 02/15/18 08:40 Pulse Rate 59 L 02/15/18 08:40 Respiratory Rate 20 02/15/18 08:40 Blood Pressure 143/61 02/15/18 08:40 O2 Sat by Pulse Oximetry (%) 97 02/15/18 01:27 Constitutional: Yes: Well Nourished, No Distress, Calm Eyes: Yes: WNL, Conjunctiva Clear, EOM Intact HENT: Yes: WNL, Atraumatic, Normocephalic Neck: Yes: WNL, Supple, Trachea Midline Respiratory: Yes: WNL, Regular, CTA Bilaterally Gastrointestinal: Yes: WNL, Normal Bowel Sounds Renal/: Yes: WNL Cardiovascular: Yes: WNL, Regular Rate and Rhythm Musculoskeletal: Yes: WNL Extremities: Yes: WNL Integumentary: Yes: WNL Neurological: Yes: WNL, Alert, Oriented ...Motor Strength: WNL Psychiatric: Yes: WNL, Alert, Oriented - Other Data Labs, Other Data: CBC, BMP 02/15/18 06:00 02/15/18 06:00 INR, PTT INR 1.18 (0.83-1.09) H 02/14/18 20:45 Troponin, BNP 02/14/18 02/15/18 20:45 01:38 Troponin I 0.08 H 0.08 H Troponin, BNP 02/14/18 02/15/18 20:45 01:38 Troponin I 0.08 H 0.08 H Imaging - Results Chest X-ray: Image Reviewed (no i/e) EKG: Image Reviewed ( 1 [facility] avb rep abn) Problem List - Problems (1) HLD (hyperlipidemia) Code(s): E78.5 - HYPERLIPIDEMIA, UNSPECIFIED (2) Liver cancer Code(s): C22.9 - MALIG NEOPLASM OF LIVER, NOT SPECIFIED PRIMARY OR SEC Qualifiers: Liver malignancy type: unspecified liver malignancy Qualified Code(s): C22.9 - Malignant neoplasm of liver, not specified as primary or secondary (3) Symptomatic anemia Code(s): D64.9 - ANEMIA, UNSPECIFIED (4) BPH (benign prostatic hyperplasia) Code(s): N40.0 - BENIGN PROSTATIC HYPERPLASIA WITHOUT LOWER URINRY TRACT SYMP Qualifiers: Lower urinary tract symptom presence: unspecified whether lower urinary tract symptoms present Qualified Code(s): N40.0 - Benign prostatic hyperplasia without lower urinary tract symptoms (5) Biliary acute pancreatitis without necrosis or infection Code(s): K85.10 - BILIARY ACUTE PANCREATITIS WITHOUT NECROSIS OR INFECTION (6) Cholecystitis with cholelithiasis Code(s): K80.10 - CALCULUS OF GALLBLADDER W CHRONIC CHOLECYST W/O OBSTRUCTION Qualifiers: Cholelithiasis location: gallbladder Cholecystitis acuity: acute Biliary obstruction: without biliary obstruction Qualified Code(s): K80.00 - Calculus of gallbladder with acute cholecystitis without obstruction (7) Dehydration Code(s): E86.0 - DEHYDRATION (8) Epigastric abdominal pain Code(s): R10.13 - EPIGASTRIC PAIN (9) Fall Code(s): W19.XXXA - UNSPECIFIED FALL, INITIAL ENCOUNTER (10) Hypertension Code(s): I10 - ESSENTIAL (PRIMARY) HYPERTENSION Qualifiers: (11) Pancreatitis Code(s): K85.90 - ACUTE PANCREATITIS WITHOUT NECROSIS OR INFECTION, UNSP Qualifiers: Chronicity: acute Pancreatitis type: biliary Acute pancreatitis complication: unspecified Qualified Code(s): K85.10 - Biliary acute pancreatitis without necrosis or infection Assessment/Plan symptomatic anemia elevated tnis liver ca FRANK positive tnis chf htn hlp bph plan elevated tnis most likely supply demend mismatch and frank transfuse prbc hold lasix echo
--- NOTE | 2018-02-15 10:24 | PN ---
Progress Note, Physician Chief Complaint: Mr Vásquez says he is feeling better and is without complaint. Denies cp, sob, n/ v. Has not ambulated yet. - Current Medication List Current Medications: Active Medications Atorvastatin Calcium (Lipitor -) 10 mg PO HS [facility] Furosemide (Lasix -) 20 mg PO DAILY [facility] Tamsulosin HCl (Flomax -) 0.4 mg PO DAILY@0830 [facility] Last Admin: 02/15/18 09:21 Dose: 0.4 mg - Objective Vital Signs: Vital Signs Temperature 36.2 C L 02/15/18 08:40 Pulse Rate 59 L 02/15/18 08:40 Respiratory Rate 20 02/15/18 08:40 Blood Pressure 143/61 02/15/18 08:40 O2 Sat by Pulse Oximetry (%) 97 02/15/18 01:27 Constitutional: Yes: Well Nourished, No Distress, Calm Cardiovascular: Yes: Regular Rate and Rhythm. No: Gallop, Murmur, Rub Respiratory: Yes: Regular, CTA Bilaterally. No: Rales, Rhonchi, Wheezes Gastrointestinal: Yes: Normal Bowel Sounds, Soft. No: Distention, Tenderness Extremities: Yes: WNL Edema: No Labs: CBC, BMP 02/15/18 06:00 02/15/18 06:00 INR, PTT INR 1.18 (0.83-1.09) H 02/14/18 20:45 Problem List - Problems (1) Symptomatic anemia Assessment/Plan: -suspect secondary to treatment of liver cancer -receiving 2nd unit of blood now -check cbc after blood transfusion finished -PT to ambulate patient to see if symptom free -GI consulted -if improved this afternoon, can d/c home with close follow up Code(s): D64.9 - ANEMIA, UNSPECIFIED (2) Liver cancer Assessment/Plan: -outpatient management Code(s): C22.9 - MALIG NEOPLASM OF LIVER, NOT SPECIFIED PRIMARY OR SEC Qualifiers: Liver malignancy type: unspecified liver malignancy Qualified Code(s): C22.9 - Malignant neoplasm of liver, not specified as primary or secondary (3) Hypertension Assessment/Plan: -continue lasix Code(s): I10 - ESSENTIAL (PRIMARY) HYPERTENSION Qualifiers: (4) HLD (hyperlipidemia) Assessment/Plan: -continue lipitor Code(s): E78.5 - HYPERLIPIDEMIA, UNSPECIFIED (5) BPH (benign prostatic hyperplasia) Assessment/Plan: -continue tamsulosin Code(s): N40.0 - BENIGN PROSTATIC HYPERPLASIA WITHOUT LOWER URINRY TRACT SYMP Qualifiers: Lower urinary tract symptom presence: unspecified whether lower urinary tract symptoms present Qualified Code(s): N40.0 - Benign prostatic hyperplasia without lower urinary tract symptoms
--- NOTE | 2018-02-15 10:57 | EKG ---
Test Reason : Blood Pressure : / mmHG Vent. Rate : 055 BPM Atrial Rate : 055 BPM P-R Int : 256 ms QRS Dur : 092 ms QT Int : 460 ms P-R-T Axes : 082 -30 075 degrees QTc Int : 440 ms SINUS BRADYCARDIA WITH MARKED SINUS ARRHYTHMIA WITH 1ST DEGREE A-V BLOCK LEFT AXIS DEVIATION VOLTAGE CRITERIA FOR LEFT VENTRICULAR HYPERTROPHY ABNORMAL ECG WHEN COMPARED WITH ECG OF 28-NOV-2017 09:54, NO SIGNIFICANT CHANGE WAS FOUND Confirmed by ASHLEY MCKEON MD ([id number]) on 02/15/2018 10:56:46 AM Referred By: Confirmed By:ASHLEY MCKEON MD
[2018-02-15] MEDS: FUROSEMIDE 20 MG TABLET (FP) PO SCH (11:16)
--- NOTE | 2018-02-15 14:46 | ECHO ---
Name: EUGENE REYES Exam:Adult Echocardiogram Study Date: 02/15/2018 01:14 PM Age: 82 yrs Reason For Study: ef Height: 64 in Weight: 130 lb BSA: 1.6 m2 MMode/2D Measurements & Calculations RVDd: 1.2 cm Ao root diam: 4.6 cm IVSd: 0.95 cm LA dimension: 3.4 cm LVIDd: 5.6 cm ACS: 2.2 cm LVIDs: 3.0 cm LVPWd: 0.95 cm IVSs: 1.5 cm LVPWs: 1.5 cm EDV(Teich): 153.3 ml ESV(Teich): 35.6 ml Doppler Measurements & Calculations MV E max kurt: 100.9 cm/sec Ao V2 max: 159.8 cm/sec MV A max kurt: 102.2 cm/sec Ao max P.2 mmHg MV E/A: 0.99 Ao V2 mean: 105.0 cm/sec Ao mean P.0 mmHg Ao V2 VTI: 35.9 cm AI P1/2t: 381.8 msec AI max kurt: 320.5 cm/sec TR max kurt: 300.9 cm/sec AI max P.1 mmHg TR max P.2 mmHg AI dec slope: 245.9 cm/sec2 Med Peak E' Kurt: 5.2 cm/sec Med E/e': 19.5 Lat Peak E' Kurt: 7.3 cm/sec Lat E/e': 13.8 Procedure A two-dimensional transthoracic echocardiogram with color flow and Doppler was performed. Left Ventricle The left ventricular size, thickness and function are normal. The left ventricular ejection fraction is normal. Left Ventricular Filling pattern is normal for age. The left ventricular wall motion is vincent l. Right Ventricle The right ventricle is normal in size and function. Atria Normal left and right atrial size and function. Tricuspid Valve There is mild tricuspid valve thickening. There is no tricuspid stenosis. There is mild tricuspid regurgitation. Right ventricular systolic pressure is elevated at 40-50mmHg. Aortic Valve The aortic valve is normal in structure and function. No hemodynamically significant valvular aortic stenosis. Moderate aortic regurgitation. Great Vessels Moderate aortic root dilatation. Interpretation Summary The left ventricular size, thickness and function are normal The left ventricular ejection fraction is normal. The left ventricular wall motion is normal. Moderate aortic root dilatation. There is mild tricuspid regurgitation. Right ventricular systolic pressure is elevated at 40-50mmHg. Moderate aortic regurgitation. Left Ventricular Filling pattern is normal for age. MD Omkar Stout 02/15/2018 02:46 PM
[2018-02-15 16:07] LABS: BASO % 3.8 % (0-2.0); EOS % 2.3 % (0-4.5); HEMATOCRIT 26.8 % (35.4-49); HEMOGLOBIN 8.1 GM/dL (11.7-16.9); LYMPH % 4.5 % (8-40); MCH 22.8 pg (25.7-33.7); MCHC 30.2 g/dl (32.0-35.9); MEAN CELL VOLUME 75.4 fl (80-96); MEAN PLT VOLUME 8.9 fl (7.5-11.1); MONO % 7.5 % (3.8-10.2); NEUT % 81.9 % (42.8-82.8); PLATELET COUNT 404 K/MM3 (134-434); RBC 3.56 M/mm3 (4.00-5.60); RDW 22.7 % (11.9-15.9); WHITE BLOOD COUNT 9.9 K/mm3 (4.0-10.0)
[2018-02-15 16:22] LABS: ADD RBC MORPHOLOGY YES
--- NOTE | 2018-02-15 17:14 | CONS ---
DATE OF CONSULTATION: DATE OF DICTATION: 02/15/2018 HISTORY: The patient is an 82-year-old man with a history of hepatitis B, hepatocellular carcinoma s/p chemoembolization 4th to 5th round as per family who was sent into the hospital by his oncologist for abnormal hemoglobin as an outpatient, Reported to be 5.5 in the chart. The patient states he is feeling better today. He Was complaining of weakness over the past couple of weeks. He denies abdominal pain, melena, hematochezia, hematemesis, or vomiting. His last upper endoscopy and colonoscopy were approximately 4 years ago. He states in the remote past he had an episode of black stool at the time of his endoscopy but since then has not had any other episodes. PAST MEDICAL HISTORY: As listed in the HPI with the addition of ND in 2001, CAD , hypertension, hyperlipidemia, BPH. PAST SURGICAL HISTORY: Significant for laparotomy due to perforation with a colonoscopy in 2012. ALLERGIES: No known drug allergies. SOCIAL HISTORY: Quit smoking 10 years ago. Alcohol, drinks 1-2 beers a day. Denies any illicit drug use. FAMILY HISTORY: None for cancers of the GI or gynecological tract or liver disease. HOME MEDICATIONS: Reviewed include aspirin, furosemide, Flomax, entecavir, and simvastatin. REVIEW OF SYSTEMS: Negative except for pertinent positives in the HPI. PHYSICAL EXAMINATION: Vital Signs: Temperature 97, pulse 60, respiratory rate 12, blood pressure 137/ 50. General: In no acute distress. Pleasant man. HEENT: Anicteric sclerae. Cardiovascular: S1, S2. Regular rate and rhythm. Lungs: Bilaterally clear to auscultation. Abdomen: Soft and nontender. Extremities: No edema. LABORATORIES: White blood cell count 9.9, current hemoglobin after transfusion 8.1/26, MCV 75, hemoglobin on admission was 6, INR 1.1. Sodium 140, potassium 3.6, BUN 22, creatinine 1.3, total bilirubin 1.5, AST 31, ALT 27, alkaline phosphatase 179, troponin 0.08. Urine is negative. Stool is positive for occult blood. Urine culture is pending. He had a head CT, which did not reveal any acute intracranial pathology. IMPRESSION: Microcytic anemia in patient with liver carcinoma status post chemoembolization therapy. Currently no sign of an overt gastrointestinal bleed in this patient. He is hemodynamically stable. RECOMMENDATION: Obtain records from [facility]. He should be continued on his diuresis therapy. He should be started on Protonix 40 mg IV daily. He is currently on a sodium-controlled diet at this time. This can be continued if his hemoglobin remains stable. He would benefit from diagnostic upper endoscopy. For now, continue to trend his hemoglobin and hematocrit daily while hospitalized, and if he were to remove stable over the next 24 hours, no objection to him following up with his primary rehabilitation program manager and oncologist at [place]. If he develops any sign of GI bleed, we will plan for an upper endoscopy. DO VINCENZO RUSSO/[id number] MTDD
[2018-02-15 20:37] LABS: ANISOCYTOSIS 2+
[2018-02-15 20:38] LABS: PLATELET ESTIMATE ADEQUATE
[2018-02-15] MEDS: ATORVASTATIN CA 10 MG TABLET (FP) PO SCH (21:03)
[2018-02-16 06:42] LABS: BASO % 4.5 % (0-2.0); EOS % 3.3 % (0-4.5); HEMATOCRIT 22.4 % (35.4-49); LYMPH % 5.1 % (8-40); MCH 22.4 pg (25.7-33.7); MCHC 30.4 g/dl (32.0-35.9); MEAN CELL VOLUME 73.8 fl (80-96); MEAN PLT VOLUME 8.6 fl (7.5-11.1); MONO % 7.8 % (3.8-10.2); NEUT % 79.3 % (42.8-82.8); PLATELET COUNT 316 K/MM3 (134-434); RBC 3.04 M/mm3 (4.00-5.60); RDW 22.6 % (11.9-15.9); WHITE BLOOD COUNT 8.1 K/mm3 (4.0-10.0)
[2018-02-16 07:21] LABS: HEMOGLOBIN 6.8 GM/dL (11.7-16.9)
[2018-02-16 07:22] LABS: ALBUMIN 2.9 g/dl (3.4-5.0); ALK PHOS 155 U/L (45-117); ANION GAP 9 MMOL/L (8-16); BILIRUBIN,TOTAL 1.2 mg/dL (0.2-1); BLOOD UREA NITROGEN 22 mg/dL (7-18); CALCIUM 7.8 mg/dL (8.5-10.1); CHLORIDE 110 mmol/L (98-107); CO2 22 mmol/L (21-32); CREATININE 1.3 mg/dL (0.55-1.3); GLUCOSE,RANDOM 73 mg/dL (74-106); MAGNESIUM 2.4 mg/dL (1.8-2.4); PHOSPHOROUS 3.3 mg/dL (2.5-4.9); POTASSIUM 3.8 mmol/L (3.5-5.1); SGOT/AST 35 U/L (15-37); SGPT/ALT 27 U/L (13-61); SODIUM 140 mmol/L (136-145)
[2018-02-16] MEDS ORDERED: FUROSEMIDE 40 MG/4 ML INJECTABLE VIAL IVPUSH ONE (08:26)
[2018-02-16] MEDS: TAMSULOSIN HCL 0.4 MG CAP PO SCH (09:02)
[2018-02-16] MEDS: FUROSEMIDE 20 MG TABLET (FP) PO SCH (09:02)
--- NOTE | 2018-02-16 10:05 | PN ---
Progress Note, Physician Chief Complaint: Pt A&Ox3; sitting up in bed.; feels weak; easily dyspneic (chronic).Receiving PRBCs. History of Present Illness: The patient is an 82 year old male accompanied with his , with a past medical history of liver cancer (last chemo embolization treatment 12/2017), HTN , HLD, BPH, diastolic CHF (normal LVEF, moderate aortic root dilatation, moderate AR, normal LA size, with moderate pulmonary HTN,on 01/2018 ECHO), and hernia sent by [place] oncologist for low hemoglobin. as per patient has been feeling weak, nausea and headache for 1 day. denies chest pain, recent falls, abdominal pain, nausea, vomiting, bleeding, retacl bleeding - Current Medication List Current Medications: Active Medications Atorvastatin Calcium (Lipitor -) 10 mg PO HS [facility] Last Admin: 02/15/18 21:03 Dose: 10 mg Furosemide (Lasix -) 20 mg PO DAILY [facility] Last Admin: 02/16/18 09:02 Dose: 20 mg Tamsulosin HCl (Flomax -) 0.4 mg PO DAILY@0830 [facility] Last Admin: 02/16/18 09:02 Dose: 0.4 mg - Objective Vital Signs: Vital Signs Temperature 98.2 F 02/16/18 06:00 Pulse Rate 60 02/16/18 06:00 Respiratory Rate 20 02/16/18 06:00 Blood Pressure 122/63 02/16/18 06:00 O2 Sat by Pulse Oximetry (%) 97 02/16/18 01:00 Labs: CBC, BMP 02/16/18 06:00 02/16/18 06:00 INR, PTT INR 1.18 (0.83-1.09) H 02/14/18 20:45 Problem List - Problems (1) Liver cancer Code(s): C22.9 - MALIG NEOPLASM OF LIVER, NOT SPECIFIED PRIMARY OR SEC Qualifiers: Liver malignancy type: unspecified liver malignancy Qualified Code(s): C22.9 - Malignant neoplasm of liver, not specified as primary or secondary (2) Symptomatic anemia Assessment/Plan: Again receiving PRBCs. Stool quaiac +. F/u with GI, heme-onc. Code(s): D64.9 - ANEMIA, UNSPECIFIED (3) Diastolic CHF Code(s): I50.30 - UNSPECIFIED DIASTOLIC (CONGESTIVE) HEART FAILURE
--- NOTE | 2018-02-16 12:52 | PN ---
Progress Note, Physician Chief Complaint: Mr Vásquez is without complaint. Denies cp, sob, n/v. Wants to go home but understands he is still bleeding and will stay for full workup. - Current Medication List Current Medications: Active Medications Atorvastatin Calcium (Lipitor -) 10 mg PO HS [facility] Last Admin: 02/15/18 21:03 Dose: 10 mg Furosemide (Lasix -) 20 mg PO DAILY [facility] Last Admin: 02/16/18 09:02 Dose: 20 mg Pantoprazole Sodium (Protonix Iv) 40 mg IVPUSH DAILY [facility] Tamsulosin HCl (Flomax -) 0.4 mg PO DAILY@0830 [facility] Last Admin: 02/16/18 09:02 Dose: 0.4 mg - Objective Vital Signs: Vital Signs Temperature 36.6 C 02/16/18 10:00 Pulse Rate 59 L 02/16/18 10:00 Respiratory Rate 18 02/16/18 10:00 Blood Pressure 158/67 02/16/18 10:00 O2 Sat by Pulse Oximetry (%) 97 02/16/18 09:00 Constitutional: Yes: Well Nourished, No Distress, Calm Cardiovascular: Yes: Regular Rate and Rhythm. No: Gallop, Murmur, Rub Respiratory: Yes: Regular, CTA Bilaterally. No: Rales, Rhonchi, Wheezes Gastrointestinal: Yes: Normal Bowel Sounds, Soft. No: Distention, Tenderness Extremities: Yes: WNL Edema: No Labs: CBC, BMP 02/16/18 06:00 02/16/18 06:00 INR, PTT INR 1.18 (0.83-1.09) H 02/14/18 20:45 Problem List - Problems (1) Symptomatic anemia Code(s): D64.9 - ANEMIA, UNSPECIFIED (2) Liver cancer Code(s): C22.9 - MALIG NEOPLASM OF LIVER, NOT SPECIFIED PRIMARY OR SEC Qualifiers: Liver malignancy type: unspecified liver malignancy Qualified Code(s): C22.9 - Malignant neoplasm of liver, not specified as primary or secondary (3) Hypertension Code(s): I10 - ESSENTIAL (PRIMARY) HYPERTENSION Qualifiers: (4) HLD (hyperlipidemia) Code(s): E78.5 - HYPERLIPIDEMIA, UNSPECIFIED (5) BPH (benign prostatic hyperplasia) Code(s): N40.0 - BENIGN PROSTATIC HYPERPLASIA WITHOUT LOWER URINRY TRACT SYMP Qualifiers: Lower urinary tract symptom presence: unspecified whether lower urinary tract symptoms present Qualified Code(s): N40.0 - Benign prostatic hyperplasia without lower urinary tract symptoms Assessment/Plan (1) Symptomatic anemia Assessment/Plan: -appreciate GI recommendations -will start IV protonix -H/H dropped again -transfuse another 2 units -will place on clear liquid diet -npo after mn in anticipation of EGD -will await GI to see today and schedule EGD Code(s): D64.9 - ANEMIA, UNSPECIFIED (2) Liver cancer Assessment/Plan: -outpatient management Code(s): C22.9 - MALIG NEOPLASM OF LIVER, NOT SPECIFIED PRIMARY OR SEC Qualifiers: Liver malignancy type: unspecified liver malignancy Qualified Code(s): C22.9 - Malignant neoplasm of liver, not specified as primary or secondary (3) Hypertension Assessment/Plan: -continue lasix Code(s): I10 - ESSENTIAL (PRIMARY) HYPERTENSION Qualifiers: (4) HLD (hyperlipidemia) Assessment/Plan: -continue lipitor Code(s): E78.5 - HYPERLIPIDEMIA, UNSPECIFIED (5) BPH (benign prostatic hyperplasia) Assessment/Plan: -continue tamsulosin Code(s): N40.0 - BENIGN PROSTATIC HYPERPLASIA WITHOUT LOWER URINRY TRACT SYMP Qualifiers: Lower urinary tract symptom presence: unspecified whether lower urinary tract symptoms present Qualified Code(s): N40.0 - Benign prostatic hyperplasia without lower urinary tract symptoms
[2018-02-16] MEDS ORDERED: PANTOPRAZOLE SODIUM 40 MG VIAL IVPUSH SCH (13:00)
--- NOTE | 2018-02-16 15:11 | PN ---
GI Progress Note Subjective: No acute events No overt bleeding H/H again - Objective Vital Signs: Vital Signs Temperature 98.1 F 02/16/18 14:52 Pulse Rate 60 02/16/18 14:52 Respiratory Rate 16 02/16/18 14:52 Blood Pressure 155/69 02/16/18 14:52 O2 Sat by Pulse Oximetry (%) 97 02/16/18 09:00 Constitutional: Calm Eyes: No: Sclera Icterus Cardiovascular: Yes: Bradycardia Respiratory: Yes: CTA Bilaterally Gastrointestinal Inspection: Yes: Ascites, Hernia (non-tender fluid filled umbilical hernia), Scars (midline vertical surgical scar). No: Distention ...Auscultate: Yes: Normoactive Bowel Sounds ...Palpate: Yes: Soft. No: Hepatomegaly, Splenomegaly, Tenderness ...Rectal Exam: Yes: Other (brown stool, no melena, guaiac positive) Edema: No (no LE edema) Neurological: Yes: Alert Labs: CBC, BMP 02/16/18 06:00 02/16/18 06:00 INR, PTT INR 1.18 (0.83-1.09) H 02/14/18 20:45 Hepatic Panel Total Bilirubin 1.2 mg/dL (0.2-1) H 02/16/18 06:00 AST 35 U/L (15-37) 02/16/18 06:00 ALT 27 U/L (13-61) 02/16/18 06:00 Alkaline Phosphatase 155 U/L (45-117) H 02/16/18 06:00 Albumin 2.9 g/dl (3.4-5.0) L 02/16/18 06:00 Problem List - Problems (1) Symptomatic anemia Assessment/Plan: Discussed finding of worsened anemia and blood in stool. Mr. Vásquez believes that he last had an EGD 09/02 but is uncertain what was found. He did not appear familiar with the term varices. Tried getting more information: I tried to contact his PMD Dr. Margoth Craven but was unsuccessful in contacting him, despite going through [employer] operator I left a message to speak with his daughter Rosa ([phone]). It went straight to voicedeil. I discussed with the patient the plan for EGD to evaluate for source of bleeding given guaiac positive stool and h/o black bowel movements. I discussed possible banding of varices. We discussed potential risks of the procedure like but not limited to bleeding, perforation requiring surgery to repair, infection, sedation medication effects all of which could be potentially life threatening. He is apprehensive. I explained that if no source of bleeding was identified on upper endoscopy, colonoscopy would need to be considered. He sustained a perforation during colonoscopy leading to laparoscopy so does not want to have another one. He stated that he would like to wait for his daughter and to be here tonight to discuss things with them prior to consenting to EGD For now, maintain clear liquid diet, NPO after midnight Added levaquin given that patient clinically has ascites. Uncertain if underlying cirrhosis Code(s): D64.9 - ANEMIA, UNSPECIFIED
[2018-02-16] MEDS: ATORVASTATIN CA 10 MG TABLET (FP) PO SCH (21:12)
[2018-02-16 21:58] LABS: HEMATOCRIT 31.8 % (35.4-49); MCH 23.7 pg (25.7-33.7); MCHC 31.4 g/dl (32.0-35.9); MEAN CELL VOLUME 75.5 fl (80-96); MEAN PLT VOLUME 8.6 fl (7.5-11.1); PLATELET COUNT 401 K/MM3 (134-434); RBC 4.22 M/mm3 (4.00-5.60); RDW 22.3 % (11.9-15.9); WHITE BLOOD COUNT 12.6 K/mm3 (4.0-10.0)
[2018-02-17] MEDS: PANTOPRAZOLE SODIUM 80 MG in SODIUM CHLORIDE 100 ML IVPB SCH (04:07)
[2018-02-17 06:59] LABS: BASO % 4.3 % (0-2.0); EOS % 2.4 % (0-4.5); HEMATOCRIT 33.9 % (35.4-49); HEMOGLOBIN 10.4 GM/dL (11.7-16.9); LYMPH % 3.6 % (8-40); MCH 23.4 pg (25.7-33.7); MCHC 30.5 g/dl (32.0-35.9); MEAN CELL VOLUME 76.7 fl (80-96); MEAN PLT VOLUME 8.8 fl (7.5-11.1); MONO % 7.3 % (3.8-10.2); NEUT % 82.4 % (42.8-82.8); PLATELET COUNT 346 K/MM3 (134-434); RBC 4.42 M/mm3 (4.00-5.60); RDW 22.4 % (11.9-15.9); WHITE BLOOD COUNT 11.2 K/mm3 (4.0-10.0)
[2018-02-17 07:48] LABS: INR 1.31 (0.83-1.09); PROTHROMBIN TIME (PATIENT) 15.5 SEC (9.7-13.0)
[2018-02-17 07:54] LABS: ANION GAP 11 MMOL/L (8-16); BLOOD UREA NITROGEN 26 mg/dL (7-18); CALCIUM 8.9 mg/dL (8.5-10.1); CHLORIDE 106 mmol/L (98-107); CO2 23 mmol/L (21-32); CREATININE 1.5 mg/dL (0.55-1.3); GLUCOSE,RANDOM 69 mg/dL (74-106); MAGNESIUM 2.6 mg/dL (1.8-2.4); PHOSPHOROUS 3.7 mg/dL (2.5-4.9); SODIUM 140 mmol/L (136-145)
[2018-02-17 08:08] LABS: SERUM IRON SATURATION 6 % (15-55); TOTAL IRON BINDING CAPACITY 308 ug/dL (250-450); UIBC 290 ug/dL (111-343)
--- NOTE | 2018-02-17 08:37 | PN ---
Progress Note, Physician Chief Complaint: No over night event schedule for EGD History of Present Illness: 82 yrs old man H/O HTN, CAD, Liver CA (diagnosed 2012, on chemo-embolization tx at [facility]) chronic anemia requiring transfusions dependent, ( last in November 2017) CKD-III (baseline 1.4-1.6 here), BPH, Gallstones, Cirrhosis with ascites, referred by his Oncologist to ED for anemia, on admission H/H lab also shows mild troponin leak but no chest pain or SOB, - Current Medication List Current Medications: Active Medications Atorvastatin Calcium (Lipitor -) 10 mg PO HS [facility] Last Admin: 02/16/18 21:12 Dose: 10 mg Furosemide (Lasix -) 20 mg PO DAILY [facility] Last Admin: 02/16/18 09:02 Dose: 20 mg Pantoprazole Sodium 80 mg/ (Sodium Chloride) 100 mls @ 10 mls/hr IVPB Q10H [facility] Last Admin: 02/17/18 04:07 Dose: 10 mls/hr Levofloxacin (Levaquin 500 Mg Premixed Ivpb -) 500 mg in 100 mls @ 100 mls/hr IVPB DAILY [facility] Tamsulosin HCl (Flomax -) 0.4 mg PO DAILY@0830 [facility] Last Admin: 02/16/18 09:02 Dose: 0.4 mg - Objective Vital Signs: Vital Signs Temperature 98.2 F 02/17/18 05:00 Pulse Rate 51 L 02/17/18 05:00 Respiratory Rate 18 02/17/18 08:26 Blood Pressure 152/54 L 02/17/18 05:00 O2 Sat by Pulse Oximetry (%) 97 02/17/18 08:26 Constitutional: Yes: Calm. No: Anxious HENT: Yes: Normocephalic, Other (MM moist anemia) Neck: Yes: Supple, Trachea Midline. No: Decreased ROM, Lymphadenopathy Cardiovascular: Yes: Regular Rate and Rhythm, S1, S2. No: Bruit, JVD, Murmur Respiratory: Yes: Regular, CTA Bilaterally Gastrointestinal: Yes: Normal Bowel Sounds, Soft Extremities: No: Calf Tenderness Edema: LLE: Trace, RLE: Trace Peripheral Pulses: Left Doralis Pedis: 1+, Right Dorsalis Pedis: 1+ Neurological: Yes: Alert, Oriented ...Motor Strength: LUE, LLE, RUE, RLE Labs: CBC, BMP 02/17/18 05:30 02/17/18 05:30 INR, PTT INR 1.31 (0.83-1.09) H 02/17/18 05:30 Problem List - Problems (1) Symptomatic anemia Assessment/Plan: Present with symptomatic anemia, multiple transfusion schedule for EGD today Code(s): D64.9 - ANEMIA, UNSPECIFIED (2) Liver cancer Assessment/Plan: S/P Embolization e/u with his oncologist at [facility] Code(s): C22.9 - MALIG NEOPLASM OF LIVER, NOT SPECIFIED PRIMARY OR SEC Qualifiers: Liver malignancy type: unspecified liver malignancy Qualified Code(s): C22.9 - Malignant neoplasm of liver, not specified as primary or secondary (3) Hypertension Assessment/Plan: Well controlled cont current regimen Code(s): I10 - ESSENTIAL (PRIMARY) HYPERTENSION Qualifiers: (4) HLD (hyperlipidemia) Assessment/Plan: on Statin at home Code(s): E78.5 - HYPERLIPIDEMIA, UNSPECIFIED (5) Elevated troponin I level Assessment/Plan: Due to Demand ischemia will F/U Cardiology recommendation Code(s): R74.8 - ABNORMAL LEVELS OF OTHER SERUM ENZYMES (6) BPH (benign prostatic hyperplasia) Assessment/Plan: on Flomax cont same Code(s): N40.0 - BENIGN PROSTATIC HYPERPLASIA WITHOUT LOWER URINRY TRACT SYMP Qualifiers: Lower urinary tract symptom presence: unspecified whether lower urinary tract symptoms present Qualified Code(s): N40.0 - Benign prostatic hyperplasia without lower urinary tract symptoms
[2018-02-17] MEDS: TAMSULOSIN HCL 0.4 MG CAP PO SCH (08:40)
[2018-02-17] MEDS: FUROSEMIDE 20 MG TABLET (FP) PO SCH (09:13)
[2018-02-17] MEDS ORDERED: TETRACAINE/BENZOCAINE/BUTAMBEN 20 GM SPR TP ONE (16:00)
--- NOTE | 2018-02-17 16:14 | PN ---
Progress Note, Physician History of Present Illness: The patient is an 82 year old male accompanied with his , with a past medical history of liver cancer (last chemo embolization treatment 12/2017), HTN , HLD, BPH, diastolic CHF (normal LVEF, moderate aortic root dilatation, moderate AR, normal LA size, with moderate pulmonary HTN,on 01/2018 ECHO), and hernia sent by [place] oncologist for low hemoglobin. as per patient has been feeling weak, nausea and headache for 1 day. denies chest pain, recent falls, abdominal pain, nausea, vomiting, bleeding, retacl bleeding - Current Medication List Current Medications: Active Medications Atorvastatin Calcium (Lipitor -) 10 mg PO HS [facility] Last Admin: 02/16/18 21:12 Dose: 10 mg Furosemide (Lasix -) 20 mg PO DAILY [facility] Last Admin: 02/17/18 09:13 Dose: Not Given Pantoprazole Sodium 80 mg/ (Sodium Chloride) 100 mls @ 10 mls/hr IVPB Q10H [facility] Last Admin: 02/17/18 04:07 Dose: 10 mls/hr Levofloxacin (Levaquin 500 Mg Premixed Ivpb -) 500 mg in 100 mls @ 100 mls/hr IVPB DAILY [facility] Tamsulosin HCl (Flomax -) 0.4 mg PO DAILY@0830 [facility] Last Admin: 02/17/18 08:40 Dose: Not Given - Objective Vital Signs: Vital Signs Temperature 97.7 F 02/17/18 14:00 Pulse Rate 51 L 02/17/18 14:00 Respiratory Rate 18 02/17/18 09:00 Blood Pressure 153/61 02/17/18 14:00 O2 Sat by Pulse Oximetry (%) 97 02/17/18 08:26 Labs: CBC, BMP 02/17/18 05:30 02/17/18 05:30 INR, PTT INR 1.31 (0.83-1.09) H 02/17/18 05:30 Problem List - Problems (1) Liver cancer Assessment/Plan: f/u with oncologist and GI Code(s): C22.9 - MALIG NEOPLASM OF LIVER, NOT SPECIFIED PRIMARY OR SEC Qualifiers: Liver malignancy type: unspecified liver malignancy Qualified Code(s): C22.9 - Malignant neoplasm of liver, not specified as primary or secondary (2) Symptomatic anemia Assessment/Plan: Again receiving PRBCs. Stool quaiac +. F/u with GI, heme-onc. For EGD today. Code(s): D64.9 - ANEMIA, UNSPECIFIED (3) Diastolic CHF Code(s): I50.30 - UNSPECIFIED DIASTOLIC (CONGESTIVE) HEART FAILURE
--- NOTE | 2018-02-17 16:32 | PN ---
Progress Note (short form) - Note Progress Note: EGD report placed in procedural section of physical chart and to be scanned into [employer] Problem List - Problems (1) Symptomatic anemia Code(s): D64.9 - ANEMIA, UNSPECIFIED
[2018-02-17] MEDS: ATORVASTATIN CA 10 MG TABLET (FP) PO SCH (21:24)
--- NOTE | 2018-02-18 08:50 | PN ---
Progress Note, Physician Chief Complaint: No over night event s/p EGD History of Present Illness: 82 yrs old man H/O HTN, CAD, Liver CA (diagnosed 2012, on chemo-embolization tx at [facility]) chronic anemia requiring transfusions dependent, ( last in November 2017) CKD-III (baseline 1.4-1.6 here), BPH, Gallstones, Cirrhosis with ascites, referred by his Oncologist to ED for anemia, on admission H/H lab also shows mild troponin leak but no chest pain or SOB, - Current Medication List Current Medications: Active Medications Atorvastatin Calcium (Lipitor -) 10 mg PO HS [facility] Last Admin: 02/17/18 21:24 Dose: 10 mg Furosemide (Lasix -) 20 mg PO DAILY [facility] Last Admin: 02/17/18 09:13 Dose: Not Given Pantoprazole Sodium 80 mg/ (Sodium Chloride) 100 mls @ 10 mls/hr IVPB Q10H [facility] Last Admin: 02/17/18 04:07 Dose: 10 mls/hr Levofloxacin (Levaquin 500 Mg Premixed Ivpb -) 500 mg in 100 mls @ 100 mls/hr IVPB DAILY [facility] Tamsulosin HCl (Flomax -) 0.4 mg PO DAILY@0830 [facility] Last Admin: 02/17/18 08:40 Dose: Not Given - Objective Vital Signs: Vital Signs Temperature 98.0 F 02/18/18 06:00 Pulse Rate 54 L 02/18/18 06:00 Respiratory Rate 20 02/18/18 06:00 Blood Pressure 150/58 L 02/18/18 06:00 O2 Sat by Pulse Oximetry (%) 97 02/17/18 21:00 Constitutional: Yes: Calm. No: Anxious HENT: Yes: Normocephalic, Other (MM moist anemia) Neck: Yes: Supple, Trachea Midline. No: Decreased ROM, Lymphadenopathy Cardiovascular: Yes: Regular Rate and Rhythm, S1, S2. No: Bruit, JVD, Murmur Respiratory: Yes: Regular, CTA Bilaterally Gastrointestinal: Yes: Normal Bowel Sounds, Soft Extremities: No: Calf Tenderness, Edema: LLE: Trace, RLE: Trace, Peripheral Pulses: Left Doralis Pedis: 1+, Right Dorsalis Pedis: 1+ Neurological: Yes: Alert, Oriented Motor Strength: LUE, LLE, RUE, RLE Labs: CBC, BMP 02/17/18 05:30 02/17/18 05:30 INR, PTT INR 1.31 (0.83-1.09) H 02/17/18 05:30 Problem List - Problems (1) Symptomatic anemia Assessment/Plan: Present with symptomatic anemia, multiple transfusion schedule for EGD today Code(s): D64.9 - ANEMIA, UNSPECIFIED (2) Liver cancer Assessment/Plan: S/P Embolization e/u with his oncologist at [place] Code(s): C22.9 - MALIG NEOPLASM OF LIVER, NOT SPECIFIED PRIMARY OR SEC Qualifiers: Liver malignancy type: unspecified liver malignancy Qualified Code(s): C22.9 - Malignant neoplasm of liver, not specified as primary or secondary (3) Hypertension Assessment/Plan: Well controlled cont current regimen Code(s): I10 - ESSENTIAL (PRIMARY) HYPERTENSION Qualifiers: (4) HLD (hyperlipidemia) Assessment/Plan: on Statin at home Code(s): E78.5 - HYPERLIPIDEMIA, UNSPECIFIED (5) Elevated troponin I level Assessment/Plan: Due to Demand ischemia will F/U Cardiology recommendation Code(s): R74.8 - ABNORMAL LEVELS OF OTHER SERUM ENZYMES (6) BPH (benign prostatic hyperplasia) Assessment/Plan: on Flomax cont same Code(s): N40.0 - BENIGN PROSTATIC HYPERPLASIA WITHOUT LOWER URINRY TRACT SYMP Qualifiers: Lower urinary tract symptom presence: unspecified whether lower urinary tract symptoms present Qualified Code(s): N40.0 - Benign prostatic hyperplasia without lower urinary tract symptoms (7) Anemia due to blood loss, acute Assessment/Plan: Prent with melena Hb 6.1 improved to 10.4 EGD shows Gastritis Code(s): D62 - ACUTE POSTHEMORRHAGIC ANEMIA (8) Diastolic CHF Assessment/Plan: Compensated Code(s): I50.30 - UNSPECIFIED DIASTOLIC (CONGESTIVE) HEART FAILURE
[2018-02-18] MEDS: TAMSULOSIN HCL 0.4 MG CAP PO SCH (09:24)
[2018-02-18] MEDS: FUROSEMIDE 20 MG TABLET (FP) PO SCH (09:24)
[2018-02-18 10:37] LABS: BASO % 1.2 % (0-2.0); EOS % 1.2 % (0-4.5); HEMATOCRIT 33.5 % (35.4-49); HEMOGLOBIN 10.8 GM/dL (11.7-16.9); LYMPH % 3.4 % (8-40); MCH 24.9 pg (25.7-33.7); MCHC 32.2 g/dl (32.0-35.9); MEAN CELL VOLUME 77.1 fl (80-96); MEAN PLT VOLUME 8.8 fl (7.5-11.1); MONO % 6.8 % (3.8-10.2); NEUT % 87.4 % (42.8-82.8); PLATELET COUNT 404 K/MM3 (134-434); RBC 4.34 M/mm3 (4.00-5.60); RDW 23.2 % (11.9-15.9); WHITE BLOOD COUNT 11.2 K/mm3 (4.0-10.0)
[2018-02-18 10:45] VITALS: BP 149/56; PULSE 58; TEMP 97.9
[2018-02-18] MEDS ORDERED: PANTOPRAZOLE 40 MG TABLET (FP) PO SCH (11:15)
[2018-02-18 11:16] LABS: ANION GAP 10 MMOL/L (8-16); BLOOD UREA NITROGEN 27 mg/dL (7-18); CALCIUM 8.8 mg/dL (8.5-10.1); CHLORIDE 109 mmol/L (98-107); CO2 24 mmol/L (21-32); CREATININE 1.6 mg/dL (0.55-1.3); GLUCOSE,RANDOM 105 mg/dL (74-106); SODIUM 143 mmol/L (136-145)
--- NOTE | 2018-02-18 11:18 | DS ---
Physical Examination Vital Signs: Vital Signs Temperature 97.9 F 02/18/18 10:00 Pulse Rate 58 L 02/18/18 10:00 Respiratory Rate 18 02/18/18 10:00 Blood Pressure 149/56 L 02/18/18 10:00 O2 Sat by Pulse Oximetry (%) 97 02/18/18 09:00 Constitutional: comfortanle walking no c/o dizziness, melena, stool color is brown HENT: Yes: Normocephalic, Other (MM moist anemia) Neck: Yes: Supple, Trachea Midline. No: Decreased ROM, Lymphadenopathy Cardiovascular: Yes: Regular Rate and Rhythm, S1, S2. No: Bruit, JVD, Murmur Respiratory: Yes: Regular, CTA Bilaterally Gastrointestinal: Yes: Normal Bowel Sounds, Soft Extremities: No: Calf Tenderness Edema: LLE: Trace, RLE: Trace Peripheral Pulses: Left Doralis Pedis: 1+, Right Dorsalis Pedis: 1+ Neurological: Yes: Alert, Oriented.Motor Strength: LUE, LLE, RUE, RLE Labs: CBC, BMP 02/18/18 10:15 02/18/18 10:15 Discharge Summary Reason For Visit: MALIGNANT NEOPLASM OF LIVER/JENI TROPONIN LEVEL Current Active Problems Anemia due to blood loss, acute (Acute) Diastolic CHF (Acute) Elevated troponin I level (Acute) HLD (hyperlipidemia) (Acute) Liver cancer (Acute) Symptomatic anemia (Acute) Procedures: Principal: EGD Hospital Course: 82 yrs old man H/O HTN, CAD, Liver CA (diagnosed 2012, on chemo-embolization tx at [facility]) chronic anemia requiring transfusions dependent, ( last in November 2017) CKD-III (baseline 1.4-1.6 here), BPH, Gallstones, Cirrhosis with ascites, referred by his Oncologist to ED for anemia, on admission H/H . lab also shows mild troponin leak but no chest pain or SOB, underwent EGD that shows antral Gastritis, patient had a colonoscpy last year developed perforation, G consult discussed the issue and need for colonoscopy in the future with his Primary GI doctor if needed for anemia w/u family and understood the plan will F/U at [facility] next weak with the PMD, today walking comfortably had a brown color stool, no c/o diziness, nausea, abdominal chest pain or SOB HB 10.8. GI and Cardiology cleared the patient to go home on PO PPI Condition: Improved - Instructions Diet, Activity, Other Instructions: Advance as tolerates Disposition: HOME - Home Medications Comprehensive Discharge Medication List: Ambulatory Orders Furosemide [Lasix] 20 mg PO DAILY 06/15/17 Tamsulosin HCl [Flomax -] 0.4 mg PO DAILY 06/15/17 Entecavir 0.5 mg PO DAILY 11/28/17 Simvastatin 20 mg PO DAILY 11/28/17 Pantoprazole Sodium [Protonix -] 40 mg PO DAILY 30 Days #30 tablet.ec MDD 1 07/03 Levofloxacin 500 mg PO 3 days
[2018-02-18] MEDS: PANTOPRAZOLE SODIUM 80 MG in SODIUM CHLORIDE 100 ML IVPB SCH (12:15)
[2018-02-19] MEDS ORDERED: ENTECAVIR 0.5 MG TABLET PO SCH (10:00)
--- NOTE | 2018-02-21 17:38 | PATH ---
Surgical Pathology Report Patient Name: EUGENE REYES Med. Rec. #: [id number] /Age/Gender: 1935 (Age: 82) / M Account: [id number] Location: 4 W TELEMETRY U Taken: 02/17/2018 Received: 02/20/2018 Reported: 02/21/2018 Physicians: Hazel Zarate M.D. 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 IMMUNOHISTOCHEMICAL STAIN FOR H. PYLORI IS NEGATIVE. Electronically Signed Meme Norman M.D. Gross Description Received in formalin, labeled "biopsy antral erosion" are 2 [place], irregular portions of soft tissue measuring 0.2 and 0.4 cm. in greatest dimension. The specimens are submitted in toto in one cassette. 02/20/201802/20/2018
== END 2018-02-18 15:19 | disposition home or self-care (01) | DRG 436 ==
LOC: JER 19:44 → JERBED 23:07 → J4S 02-15 03:01 → OBSVTOIN 02-16 08:26 → J4W 02-16 18:49
PROVIDERS: ADMIT Internal Medicine; ATTEND Internal Medicine
PROC: 30233N1 Transfusion of Nonautologous Red Blood Cells into Peripheral Vein, Percutaneous Approach (ICD-10-PCS; principal; 2018-02-14)
DX: C22.8 Malignant neoplasm of liver, primary, unspecified as to type (principal); R18.8 Other ascites; I24.8 Other forms of acute ischemic heart disease; I50.30 Unspecified diastolic (congestive) heart failure; I13.0 Hypertensive heart and chronic kidney disease with heart failure and stage 1 through stage 4 chronic kidney disease, or unspecified chronic kidney disease; D62 Acute posthemorrhagic anemia; D64.9 Anemia, unspecified; N18.3 Chronic kidney disease, stage 3 (moderate); I25.10 Atherosclerotic heart disease of native coronary artery without angina pectoris; K43.9 Ventral hernia without obstruction or gangrene; N40.0 Benign prostatic hyperplasia without lower urinary tract symptoms; K74.60 Unspecified cirrhosis of liver; I25.2 Old myocardial infarction; E78.5 Hyperlipidemia, unspecified; I11.0 Hypertensive heart disease with heart failure; I35.1 Nonrheumatic aortic (valve) insufficiency; I27.20 Pulmonary hypertension, unspecified; Z87.891 Personal history of nicotine dependence
CPT/HCPCS: 36415; 36430; 70450-TC; 71046-TC-FY; 80048; 80053; 81003; 82272; 82607; 82728; 82746; 83540; 83550; 83735; 84100; 84443; 84466; 84484; 85025; 85027; 85044; 85610; 86850; 86900; 86901; 86922; 87086; 88305-TC; 93005; 93010; 93306-TC; 99282-25; G0378; P9038; P9058